=== PATIENT | male | born 1950 | race Caucasian/White ===

== ENCOUNTER 2019-12-26 14:24 | Inpatient (IN) | payer MEDICARE, OTHER ==
[~2019-12-26] VITALS: Ht 188 cm; Wt 115.7 kg
[2019-12-26] VITALS (8 sets, daily range): BP systolic 89–159; BP diastolic 44–72
--- NOTE | 2019-12-26 14:49 | NUR ---
TRANSFER CARE OVER TO DEREK ANDREW REPORT GIVEN.
--- NOTE | 2019-12-26 14:55 | NUR ---
RHYTHM/RATE CHANGE. DR CASTREJON AT BS. PT ALERT AND ORIENTED. HR 61. RADIAL PULSE PALPABLE. BP IMPROVED
[2019-12-26 15:18] LABS: BASOPHILS 0.4 % (0-2); EOSINOPHILS 0 % (0-7); HEMATOCRIT 34.8 % (42.0-54.0); HEMOGLOBIN 10.8 g/dL (13.5-17.5); LYMPHOCYTES 6.3 % (15-50); MCV 103.3 fL (80.0-100.0); MEAN PLATELET VOLUME 10.4 fL (7.4-10.4); MONOCYTES 6.7 % (2-11); NEUTROPHILS 78.6 % (40-80); PLATELET COUNT 105 10x3/uL (130-400); RBC 3.37 10x6/uL (4.20-6.10); RDW 17.3 % (11.5-14.5); WBC 5.4 10x3/uL (4.8-10.8)
[2019-12-26 15:30] LABS: APTT 30.9 SECONDS (22.8-39.4); INR 1.28 (0.85-1.17); PROTIME 15.9 SECONDS (11.6-15.0)
[2019-12-26 15:35] LABS: CALC OSMOLALITY 293 mosm/kg (275-300); CARBON DIOXIDE 25.9 mmol/L (21.0-32.0); CHLORIDE - SERUM 106 mmol/L (98-107); CREATININE - SERUM 1.2 mg/dL (0.6-1.3); GLUCOSE 92 mg/dL (74-106); POTASSIUM - SERUM 4.8 mmol/L (3.5-5.1); SODIUM 145 mmol/L (136-145); UREA NITROGEN 26 mg/dL (7-18); eGFR NON AFRICAN AMERICAN 63 mL/min (90-120)
[2019-12-26 15:55] LABS: ALBUMIN 2.5 g/dL (3.4-5.0); ALKALINE PHOSPHATASE 81 U/L (30-120); ALT (SGPT) 790 U/L (10-68); CKMB 5.2 U/L (0.0-3.6); CREATINE KINASE 297 UL (21-232); MAGNESIUM - SERUM 2.1 mg/dL (1.8-2.4); PRO BNP 8621 pg/mL (0-125); PROTEIN - SERUM 5.6 g/dL (6.4-8.2)
[2019-12-26 15:57] LABS: TROPONIN-I 0.134 ng/mL (0.000-0.060)
[2019-12-26 16:00] LABS: D-DIMER-QUANTITATIVE 2.96 ug/mLFEU (0.20-0.54)
[2019-12-26] MEDS ORDERED: ELIQUIS5 MG PO (16:21)
[2019-12-26] MEDS ORDERED: KAZANO 12.5-501 EACH PO ×2 (16:21)
[2019-12-26] MEDS ORDERED: GABAPENTIN300 MG PO (16:22)
[2019-12-26] MEDS ORDERED: FUROSEMIDE20 MG PO (16:22)
[2019-12-26] MEDS ORDERED: CARDIZEM 90 MG90 MG PO (16:22)
[2019-12-26] MEDS ORDERED: LIPITOR80 MG PO (16:22)
[2019-12-26] MEDS ORDERED: LANTUS INS100 UNITS/ SC (16:23)
[2019-12-26] MEDS ORDERED: HUMULIN R100 UNIT/1 SC (16:23)
[2019-12-26] MEDS ORDERED: HYDROXYCHLOROQ200 MG PO (16:23)
[2019-12-26] MEDS ORDERED: GLUCOPHAGE500 MG PO (16:24)
[2019-12-26] MEDS ORDERED: PAMELOR10 MG PO (16:24)
[2019-12-26] MEDS ORDERED: PROTONIX40 MG PO (16:24)
[2019-12-26] MEDS ORDERED: K-DUR20 MEQ PO (16:24)
[2019-12-26] MEDS ORDERED: TRAZODONE HCL150 MG PO (16:25)
[2019-12-26] MEDS ORDERED: BETAPACE 80 MG80 MG PO (16:25)
[2019-12-26] MEDS ORDERED: PREDNISONE5 MG PO (16:25)
[2019-12-26] MEDS ORDERED: OS-CAL500 MG PO (16:26)
[2019-12-26] MEDS ORDERED: ACETAMINOPHEN325 MG PO (16:26)
[2019-12-26] MEDS ORDERED: ZOFRAN ODT4 MG/UDTAB PO (16:27)
[2019-12-26] MEDS ORDERED: METHOCARBAMOL500 MG PO (16:27)
[2019-12-26] MEDS ORDERED: HEALTHYLAX17 GM PO (16:27)
[2019-12-26] MEDS ORDERED: RESTORIL15 MG PO (16:27)
[2019-12-26] MEDS ORDERED: ULTRAM50 MG PO (16:28)
--- NOTE | 2019-12-26 17:45 | NUR ---
VIET MCLEAN AT
[2019-12-26 21:42] LABS: CREATINE KINASE 307 UL (21-232)
[2019-12-26 21:43] LABS: TROPONIN-I 0.119 ng/mL (0.000-0.060)
[2019-12-27 02:34] VITALS: BP 176/87; BMI 32.8
[2019-12-27 04:00] VITALS: BP 181/92
[2019-12-27 05:57] LABS: HEMATOCRIT 32.7 % (42.0-54.0); HEMOGLOBIN 10.5 g/dL (13.5-17.5); MCH 32.8 pg (26.0-34.0); MCHC 32.1 g/dL (31.0-37.0); MCV 102.2 fL (80.0-100.0); MEAN PLATELET VOLUME 12.6 fL (7.4-10.4); PLATELET COUNT 101 10x3/uL (130-400); RDW 17.9 % (11.5-14.5); WBC 5.1 10x3/uL (4.8-10.8)
[2019-12-27 06:43] LABS: ALBUMIN 2.4 g/dL (3.4-5.0); ALKALINE PHOSPHATASE 79 U/L (30-120); ALT (SGPT) 666 U/L (10-68); AMYLASE - SERUM 63 U/L (25-115); BILIRUBIN - TOTAL 1.29 mg/dL (0.2-1.3); CALCIUM 7.9 mg/dL (8.5-10.1); CARBON DIOXIDE 27.2 mmol/L (21.0-32.0); CHLORIDE - SERUM 106 mmol/L (98-107); CREATINE KINASE 183 UL (21-232); LIPASE 80 U/L (73-393); MAGNESIUM - SERUM 2.2 mg/dL (1.8-2.4); PHOSPHOROUS 4.3 mg/dL (2.5-4.9); POTASSIUM - SERUM 4.2 mmol/L (3.5-5.1); PRO BNP 3378 pg/mL (0-125); PROTEIN - SERUM 4.8 g/dL (6.4-8.2); SODIUM 142 mmol/L (136-145); UREA NITROGEN 23 mg/dL (7-18); eGFR NON AFRICAN AMERICAN 78 mL/min (90-120)
[2019-12-27 07:14] LABS: CALC OSMOLALITY 283 mosm/kg (275-300); TROPONIN-I 0.145 ng/mL (0.000-0.060)
[2019-12-27 07:18] LABS: GLUCOSE 53 mg/dL (74-106)
--- NOTE | 2019-12-27 07:25 | NUR ---
PT RESTING IN BED, AROUSES TO VOICE, ORIENTED TO PERSON ONLY AT THIS TIME. D50 BEING ADMINISTERED AT THIS TIME BY TOURIST ADVISER NURSE. RESP SHALLOW, UPON LISTENING TO BOWEL SOUNDS, PT DOES MAKE MOANING SOUNDS @ THIS TIME, GRIMACING. REDNESS NOTED TO RIGHT SCLERA AT THIS TIME. IV TO RIGHT AC WITH NS @ 100ML/HR INFUSING VIA PUMP. SITE WITHOUT REDNESS OR EDEMA. MULTIPLE SCABS AND SORES NOTED TO RIGHT AND LEFT ARM, RIGHT AND LEFT LEG AND BRUISING. DRESSINGS INTACT TO AREAS. COCCYX REDDENED, SCAB AND SORE TO BUTTOCKS. EDEMA NOTE TO BILAT LOWER EXTREMITIES. CL WITHIN REACH. CONTINUE POC
[2019-12-27 07:44] LABS: ANISOCYTOSIS OCC; EOSINOPHILS 1 % (0-7); LYMPHOCYTES 17 % (15-50); MONOCYTES 2 % (2-11); NEUTROPHILS 79 % (40-80)
[2019-12-27 08:19] LABS: PLATELET ESTIMATE NORMAL
--- NOTE | 2019-12-27 09:30 | NUR ---
PT AWAKE AND MORE ALERT. ORIENTED TO PERSON PLACE AND TIME AT THIS TIME. SPOUSE AT BEDSIDE AND ABLE TO IDENTIFY SPOUSE. PT REPORTS PAIN TO LOWER BACK, BUT HAS NO ORDERS FOR PAIN MEDICATION AT THIS TIME. INFORMED PT AND FAMILY, WILL CONTACT PHYSICIAN REGARDING NEED FOR PAIN MEDICATION.
[2019-12-27 10:13] VITALS: BP 183/89
[2019-12-27 10:24] LABS: CKMB 3.6 U/L (0.0-3.6); CREATINE KINASE 148 UL (21-232)
[2019-12-27 10:28] LABS: TROPONIN-I 0.121 ng/mL (0.000-0.060)
[2019-12-27 10:40] VITALS: Ht 188 cm; Wt 115.7 kg
[2019-12-27 14:34] VITALS: BP 171/79
[2019-12-27 17:52] LABS: BILIRUBIN NEGATIVE (NEGATIVE); GLUCOSE NEGATIVE (NEGATIVE); KETONE SMALL mg/dL (NEGATIVE); NITRITE NEGATIVE (NEGATIVE); UROBILINOGEN NORMAL (NORMAL)
[2019-12-27 17:53] LABS: BACTERIA FEW /hpf (NEGATIVE); EPITHELIAL CELLS NSEEN /hpf (0-5); RED CELLS - URINE 0-5 /hpf (0-5); WHITE CELLS - URINE 0-5 /hpf (NEGATIVE)
[2019-12-27 18:44] VITALS: BP 182/84
[2019-12-27 20:00] VITALS: BP 143/72
--- NOTE | 2019-12-27 20:00 | NUR ---
PATIENT RESTING IN BED WATCHING TV. NO S/S OF ACUTE DISTRESS. NO C/O AT THIS TIME. PATIENT HAS IV TO RIGHT AC, NORMAL SALINE @ 100 ML/HR. IV IS PATENT WIHOUT REDNESS, SWELLING, OR TENDERNESS. PATIENT IS VERY GROGGY AND SLEEPY. PATIENT HAS EDEMA TO BILAT ARMS AND LEGS. PATIENT'S ARMS ARE WEEPING WITH MUTLIPLE OPEN SORES ON THEM. PATIENT USES URINAL AND BEDPAN. CALL LIGHT WITHIN REACH. BED ALARM ON. WILL CONTINUE TO MONITOR.
[2019-12-28 04:00] VITALS: BP 173/78
--- NOTE | 2019-12-28 05:14 | NUR ---
I have reviewed this patient and I concur with the Shift Assessment completed by the Licensed Practical Nurse today this shift.
--- NOTE | 2019-12-28 08:00 | NUR ---
PT RESTING IN BED QUIETLY. RESP EVEN AND UNLABORED. RIGHT IJ INTACT WITH 1/2 NS @ 125ML/HR INFUSING VIA PUMP. SITE WITHOUT REDNESS OR EDEMA. 3 LAP SITES NOTED TO ABDOMEN. G-TUBE TO LEFT QUAD IN PLACE, NO DRAINAGE NO REDNESS NOTED. PT VOICED QUESTIONS ABOUT FEEDING. EDUCATED PT REGARDING FEEDINGS AND USE OF GTUBE. PT VOICED UNDERSTANDING. F/C PATENT TO GRAVITY. DENIES FURTHER NEEDS AT THIS TIME. CL WITHIN REACH. ENCOURAGED TO CALL WITH NEEDS. CONTINUE POC
[2019-12-28 08:13] LABS: HEPATITIS C ANTIBODY <0.1 S/CO RAT (0.0-0.9)
[2019-12-28 09:00] LABS: BASOPHILS 0.4 % (0-2); EOSINOPHILS 0 % (0-7); HEMATOCRIT 33.2 % (42.0-54.0); HEMOGLOBIN 10.5 g/dL (13.5-17.5); IMMATURE GRANULOCYTES 6.5 % (0-5); LYMPHOCYTES 6.6 % (15-50); MCH 32.1 pg (26.0-34.0); MCHC 31.6 g/dL (31.0-37.0); MCV 101.5 fL (80.0-100.0); MEAN PLATELET VOLUME 9.8 fL (7.4-10.4); MONOCYTES 5.5 % (2-11); PLATELET COUNT 119 10x3/uL (130-400); RBC 3.27 10x6/uL (4.20-6.10); RDW 16.8 % (11.5-14.5); WBC 5.3 10x3/uL (4.8-10.8)
[2019-12-28 09:23] LABS: CALCIUM 7.6 mg/dL (8.5-10.1); CHLORIDE - SERUM 107 mmol/L (98-107); CREATININE - SERUM 0.8 mg/dL (0.6-1.3); PHOSPHOROUS 3.8 mg/dL (2.5-4.9); POTASSIUM - SERUM 4.2 mmol/L (3.5-5.1); SODIUM 143 mmol/L (136-145); UREA NITROGEN 19 mg/dL (7-18); eGFR NON AFRICAN AMERICAN > 90 mL/min (90-120)
[2019-12-28 09:27] LABS: CALC OSMOLALITY 287 mosm/kg (275-300); GLUCOSE 122 mg/dL (74-106)
[2019-12-28 10:59] VITALS: BP 132/94
[2019-12-28 13:02] VITALS: BP 161/88
[2019-12-28 17:08] VITALS: BP 171/83
[2019-12-28 20:00] VITALS: BP 135/76
--- NOTE | 2019-12-28 20:00 | NUR ---
PATIENT IS CONFUSED. ORIENTATED TO SELF ONLY. NO S/S OF ACUTE DISTRESS. NO C/O AT THIS TIME. CALL LIGHT WITHIN REACH. BED ALARM ON. WILL CONTINUE TO MONITOR.
--- NOTE | 2019-12-29 05:00 | NUR ---
I have reviewed this patient and I concur with the Shift Assessment completed by the Licensed Practical Nurse today this shift.
[2019-12-29 07:28] LABS: CALC OSMOLALITY 281 mosm/kg (275-300); CALCIUM 8.4 mg/dL (8.5-10.1); CARBON DIOXIDE 23.4 mmol/L (21.0-32.0); CHLORIDE - SERUM 107 mmol/L (98-107); GLUCOSE 128 mg/dL (74-106); MAGNESIUM - SERUM 2.1 mg/dL (1.8-2.4); POTASSIUM - SERUM 3.8 mmol/L (3.5-5.1); SODIUM 139 mmol/L (136-145); UREA NITROGEN 19 mg/dL (7-18); eGFR NON AFRICAN AMERICAN 78 mL/min (90-120)
[2019-12-29 07:29] LABS: BASOPHILS 0.2 % (0-2); EOSINOPHILS 0.3 % (0-7); HEMATOCRIT 34.2 % (42.0-54.0); HEMOGLOBIN 10.9 g/dL (13.5-17.5); IMMATURE GRANULOCYTES 5.7 % (0-5); LYMPHOCYTES 11.8 % (15-50); MCH 32.5 pg (26.0-34.0); MCHC 31.9 g/dL (31.0-37.0); MCV 102.1 fL (80.0-100.0); MEAN PLATELET VOLUME 9.8 fL (7.4-10.4); MONOCYTES 6.9 % (2-11); NEUTROPHILS 75.1 % (40-80); PLATELET COUNT 135 10x3/uL (130-400); RBC 3.35 10x6/uL (4.20-6.10); RDW 16.8 % (11.5-14.5); WBC 5.9 10x3/uL (4.8-10.8)
[2019-12-29 07:47] LABS: PHOSPHOROUS 2.6 mg/dL (2.5-4.9)
--- NOTE | 2019-12-29 08:23 | NUR ---
PT RESTING IN BED, NO DISTRESS NOTED, MONITOR SUGARS, IN ROOM, TELE IN PLACE, LEGS AND ARMS WRAPPED FOR WEEPING, CONT TO MONITOR
[2019-12-29 09:57] VITALS: BP 102/62
--- NOTE | 2019-12-29 14:04 | NUR ---
refused xray at this time, states that the pain is to bad, medicated with ultram
[2019-12-29 14:09] VITALS: BP 109/82
[2019-12-29 17:04] VITALS: BP 126/70
[2019-12-29 21:00] VITALS: BP 137/84
--- NOTE | 2019-12-30 03:15 | NUR ---
DRESSINGS CHANGED TO BOUTH ARMS
--- NOTE | 2019-12-30 03:43 | NUR ---
PATIENT YELLING FOR STAFF THE YELLS THAT I WILL PUT MY SELF IN THE FLOOR. WENT INTO ROOM ATEMPTED TO APEAS HIM CHANGED DRESSINGS ON ARMS. WENT TO GET CLEAN SHEET AND BLANKET HE STARTED YELLING AGAIN EDUCATED KALI THAT I WENT TO GET THEM. WELL I WANT TO BE FIXED IN BED PUT THE PILLOW BEHIND MY BACK. OK LETS RAISE UP SO I CAN PUT IT BEHIND YOUR BACK. HE STATED NO PULL ME UP EXTENDED MY ARM TO ASSIST HE REFUSED TO HELP AND STATED YOU HAVE TO LIFT MY LEGS UP AND PUT THEM ON THE FLOOR AND STAND ME UP TO GET ME IN THE MIDLE OF THE BED, EDUCATED HIM THAT HE DID NOT HAVE TO STAND UP FOR US TO DO THAT AND I COULD NOT DO THAT BY MY SELF. HE STATED WELL GET THE HELL OUT OF HERE, CALL TO DRAMA TEACHER SHE CAME AND TALKED WITH PT AND ASSISTED WITH ADRESSING HIS NEEDS.
[2019-12-30 07:33] LABS: CARBON DIOXIDE 28.7 mmol/L (21.0-32.0); CHLORIDE - SERUM 111 mmol/L (98-107); CREATININE - SERUM 0.8 mg/dL (0.6-1.3); GLUCOSE 95 mg/dL (74-106); MAGNESIUM - SERUM 1.9 mg/dL (1.8-2.4); PHOSPHOROUS 2.3 mg/dL (2.5-4.9); SODIUM 145 mmol/L (136-145); eGFR NON AFRICAN AMERICAN > 90 mL/min (90-120)
[2019-12-30 07:36] LABS: CALC OSMOLALITY 287 mosm/kg (275-300); POTASSIUM - SERUM 3.1 mmol/L (3.5-5.1); UREA NITROGEN 11 mg/dL (7-18)
[2019-12-30 07:40] LABS: HEMATOCRIT 31.1 % (42.0-54.0); MCH 32.5 pg (26.0-34.0); MCHC 32.2 g/dL (31.0-37.0); MEAN PLATELET VOLUME 9.7 fL (7.4-10.4); PLATELET COUNT 118 10x3/uL (130-400); RBC 3.08 10x6/uL (4.20-6.10); RDW 16.7 % (11.5-14.5); WBC 5.6 10x3/uL (4.8-10.8)
[2019-12-30 07:58] LABS: ANISOCYTOSIS OCC; BURR CELLS OCC; LYMPHOCYTES 17 % (15-50); MONOCYTES 1 % (2-11); NEUTROPHILS 81 % (40-80); PLATELET ESTIMATE NORMAL; TEAR DROP CELLS 1+
[2019-12-30 09:01] VITALS: BP 154/76
--- NOTE | 2019-12-30 11:04 | NUR ---
RESTING IN BED, NO DISTRESS NOTED, CONT TO MONITOR SUGARS, DRESSINGS TO ARMS AND LEGS FOR WEEPING SKIN
[2019-12-30 12:25] VITALS: BP 166/72
--- NOTE | 2019-12-30 14:00 | NUR ---
ATTEMPTED TO PUT PT ON BSC TODAY, PT KNEE BUCKLED AND PT WAS RETURNED TO BE, PT STATES THAT HE HASNT WALKED IN 1 MONTH,
[2019-12-30 16:00] VITALS: BP 123/102
[2019-12-30 20:05] VITALS: BP 151/83
--- NOTE | 2019-12-30 22:03 | NUR ---
PATIENT WAS RUNNING 130-140 UNCONTROLED A-FIB . DURING THIS TIME HE TOOK OFF HIS TELEMETRY OFF 5 TIMES AND WAS MOVING LEADS AROUND ON HIS BODY. AT THIS TIME HE IS RUNNING 74 SINUS RHYTHM.
--- NOTE | 2019-12-30 22:35 | NUR ---
PT. ALLIING WENT TO ROOM TO CHECK ON HIM HE HAD HIS LEGS OFF THE BED AND STATED YOU HAVE TO STAND ME UP.EDUCATED PT. THAT WE COULD NOT STAND HIM UP HIS LEGS BUCKLED WITH PT AND THE NURSE TODAY, ABD WE WERE UNABLE TO DO SO LAST NIGHT WHE WE ATEMPTED PER HIS REQUEST. THAT FOR HIM TO GET UP HE WOULD NEED P.T. HE THE YELLED WELL PUT BE BACK IN BED AND FIX ME UP IN THE BED. EDUCATED HIM THAT WE WOULD HAVE TO PUT THE HEAD OF THE BED DOWN TO MOVE HIM UP. HE DID NOT WHANT THIS EDUCATED THAT WE COULD NOT LIFT HIM WITHOUT PUTTING THE HEAD OF THE BED DOWN. MANNY WASSERMAN BUT YELLED AT STAFF WHEN WE DID . SAYING YOU JUST LIKE TO HURT ME. EDUCATED HIM THAT WAS NOT THE CASE. THAT WE COULD NOT LIFT HIM UP WITH THE HEAD OF THE BED UP. HE THEN STATED HE HAD IT APROVED BY THE DOCTER FOR US TO STAND HIM UP AND WALK HIM. (PT IS UNABLE TO STAND AND HOLD HIS OWN WT.) AND HE WAS GOING TO TELL HIM.
[2019-12-31 04:00] VITALS: BP 130/90
--- NOTE | 2019-12-31 06:50 | NUR ---
PATIENT YELLING OUT AND AT STAFF. PULLED OFF TELEMETRY MULTABLE TIMES. PULLED IV LINE APART AND THROUGH PART OUT THE DOOR. PULED IV FROM ARM. HITTING STAFF WHEN ATEMPTED TO HELP HIM. HE WAS PUTTING HIS LEGS OFF THE BED SAYING HE WAS GOING TO PUT HIS SELF IN THE FLOOR. CALL TO ARCHITECTURE FACULTY MEMBER NEW ORDER FOR GEADON 10MG IM Q6 HR PRN. GAVE FRIST DOSE . DID LET HIM REST FOR A SHORT TIME THEN HE STARTED AGAIN. CALLED SALES LEDGER CLERK AND INFORMED, CALLED AND SHE RETRUNED AND SAT WITH PT. UNABLE TO GET IV PUT IN REQUEST FOR VASQULAR NURSE TO TRY.
--- NOTE | 2019-12-31 07:58 | NUR ---
PATIENT SLEEPING. AT BEDSIDE. LUNGS CLEAR BILATERALLY. HEART SOUNDS S1 AND S2 HEARD IN ALL RAI. BOWEL SOUNDS ACTIVE X 4. NO IV. WAITING VASCULAR ACCESS. BED LOW. CALL ELY AND PERSONAL ITEMS IN REACH. WILL CONTINUE TO MONITOR.
[2019-12-31 08:39] VITALS: BP 124/77
--- NOTE | 2019-12-31 09:24 | NUR ---
IV TO RFA PREVIOUSLY SITED BY GIA VASCULAR ACCESS NURSE OCCLUDED AND LEAKING.
--- NOTE | 2019-12-31 10:15 | NUR ---
ATTEMPTED TO CALL NAHOMY ABOUT IV ACCESS AGAIN WITH NO ANSWER.
--- NOTE | 2019-12-31 10:33 | NUR ---
BED ALARM REFUSAL SIGNED BY AT BEDSIDE AND ON CHART.
--- NOTE | 2019-12-31 11:32 | NUR ---
ATTEMPTED AGAIN TO CALL VASCULAR ACCESS NURSE WITH NO ANSWER. CALLED ER WHO STATES [facility] NURSE NOT IN ER. STILL WAITING LINE TO GIVE MEDS.
[2019-12-31 12:29] VITALS: BP 129/66
--- NOTE | 2019-12-31 13:18 | NUR ---
Nutrition follow-up: Visited with pt and ; pt remains on clear liquids since surgery (5 days) Recommended to Edna Stinson if ProcalAmine PPN could start. RDN ordered ProcalAmine @ 75 ml/hr; IVF decreased to 50 ml/hr Labs reviewed WT: 254# RDN will monitor patients diet advancement and tolerance.
--- NOTE | 2019-12-31 13:32 | NUR ---
MONITORS CALLED AND INFORMED ME THAT THE PATIENT IS NOW RUNNING 56 SINUS KAITY AND HE WAS RUNNING 114 UNCONTROLLED AFIB THIS MORNING. I GOT REPORT THAT PT WAS 64 SINUS RHYTHM.
--- NOTE | 2019-12-31 14:18 | NUR ---
STARTED IV FLUIDS, ABX AND PROCAL. DC IV FROM RIGHT AC DUE TO INFILTRATION, CATHETER TIP INTACT, COVERED WITH GAUZE AND TAPE. TOLERATED WELL. WILL CHANGE DRESSING TO THE MIDLINE IN RIGHT UPPER ARM. RESTING COMFORTABLY. DENIES ANY NEEDS. BED IN LOWEST POSITION, BED RAILS X2, CALL LIGHT WITHIN REACH. WILL CONTINUE TO MONITOR. FAMILY AT BEDSIDE.
--- NOTE | 2019-12-31 16:35 | NUR ---
ADMINISTERED MEDICATION, 4 UNITS INSULIN PER SLIDING SCALE FOR SUGAR OF 228. CHANGED RIGHT UPPER ARM MIDLINE DRESSING, TOLERATED WELL. NEW GOWN. RESTING COMFORTABLY. DENIES ANY NEEDS. BED IN LOWEST POSITION, BED RAILS X2, CALL LIGHT WITHIN REACH. WILL CONTINUE TO MONITOR.
[2019-12-31 17:15] VITALS: BP 123/63
[2019-12-31 20:00] VITALS: BP 147/66
--- NOTE | 2019-12-31 22:40 | NUR ---
PT PULLED OUT MIDLINE, PRESSURE DRESSING APPLIED. PT MAKING SUICIDAL COMMENTS, PARKING METER COLLECTOR NOTIFIED. MONITOR CLOSELY.
--- NOTE | 2019-12-31 23:00 | NUR ---
SPOKE WITH PTs ON PHONE. INFORMED OF PT REMOVING MIDLINE AND SUICIDAL COMMENTS/AGGRESSION/NON-COMPLIANCE and PENDING PSYCH CONSULT. REPORTED GROWING CONCERN REGARDING HIS CONFUSION AND AGITATION WHICH HAS BEEN STEADILY INCREASING. WILL NOTIFY WITH ANY FURTHER SIGNIFICANT CHANGES.
[2019-12-31 23:11] LABS: HEMATOCRIT 31.3 % (42.0-54.0); HEMOGLOBIN 10.2 g/dL (13.5-17.5)
--- NOTE | 2019-12-31 23:43 | NUR ---
CALLED TO PT ROOM FOR SUICIDE ASSESSMENT. PT PULLED OUT HIS P.I.C.C. LINE AND STATED TO NURSING STAFF HIS INTENT OF DOING SO WAS TO HARM HIMSELF. ATTEMPTED SUICIDE ASSESSMENT BUT PATIENT REFUSED TO ANSWER ANY QUESTIONS. ONE ON ONE SITTER ORDERED RELATED TO ACTUAL ATTEMPT TO HARM HIMSELF.
--- NOTE | 2020-01-01 02:56 | NUR ---
I have reviewed this patient and I concur with the Shift Assessment completed by the Licensed Practical Nurse today this shift.
[2020-01-01 04:30] VITALS: BP 98/60
[2020-01-01 08:09] VITALS: BP 184/74
[2020-01-01 12:54] VITALS: BP 110/84
[2020-01-01 17:24] VITALS: BP 108/61
[2020-01-01 18:26] LABS: BASOPHILS 0.2 % (0-2); EOSINOPHILS 0.4 % (0-7); HEMATOCRIT 31.8 % (42.0-54.0); HEMOGLOBIN 10.4 g/dL (13.5-17.5); IMMATURE GRANULOCYTES 4.2 % (0-5); LYMPHOCYTES 13.2 % (15-50); MCHC 32.7 g/dL (31.0-37.0); MCV 97.8 fL (80.0-100.0); MEAN PLATELET VOLUME 9.9 fL (7.4-10.4); MONOCYTES 6.6 % (2-11); NEUTROPHILS 75.4 % (40-80); PLATELET COUNT 124 10x3/uL (130-400); RBC 3.25 10x6/uL (4.20-6.10); RDW 16.6 % (11.5-14.5)
[2020-01-01 18:42] LABS: ALBUMIN 2.2 g/dL (3.4-5.0); ALKALINE PHOSPHATASE 94 U/L (30-120); ALT (SGPT) 137 U/L (10-68); BILIRUBIN - TOTAL 1.34 mg/dL (0.2-1.3); CARBON DIOXIDE 29.8 mmol/L (21.0-32.0); CHLORIDE - SERUM 87 mmol/L (98-107); PROTEIN - SERUM 4.7 g/dL (6.4-8.2); UREA NITROGEN 8 mg/dL (7-18)
[2020-01-01 19:37] LABS: GLUCOSE 156 mg/dL (74-106)
[2020-01-01 19:38] LABS: CALC OSMOLALITY 289 mosm/kg (275-300); CALCIUM 7.4 mg/dL (8.5-10.1); CREATININE - SERUM 0.6 mg/dL (0.6-1.3); SODIUM 145 mmol/L (136-145); eGFR NON AFRICAN AMERICAN > 90 mL/min (90-120)
[2020-01-01 19:40] LABS: POTASSIUM - SERUM 2.9 mmol/L (3.5-5.1)
[2020-01-01 20:00] VITALS: BP 149/74
[2020-01-02 08:50] VITALS: BP 131/72
--- NOTE | 2020-01-02 10:26 | NUR ---
PATIENT RECEIVED FROM [employer]. PATIENT HAS FACIAL GRIMACING TO PAINFUL STIMULI. LUNGS CTA DIMINISHED IN BASES BILAT RESP UNLABORED AND EVEN. HEART TONES RRR AUSC CM IS SB IN 50'S. ABDOMEN SOFT AND ROUNDED BS X4 QUADS. SKIN WARM/DRY GENERALIZED BRUISING AND SKIN TEARS NOTED. IV INTACT IN L UPPER ARM SALINE LOCKED 20G CATH NOTED WITHOUT REDNESS OR EDEMA NOTED.
[2020-01-02 13:31] VITALS: BP 149/67
--- NOTE | 2020-01-02 14:35 | CN ---
PATIENT NAME:HELENA MENDEZ MEDICAL RECORD: [id number] : 46 LOCATION:[facility] ADMIT DATE: 12/26/19 ACCOUNT: [id number] CONSULTING PHYSICIAN: GEREMIAS SHULTZ MD REFERRING PHYSICIAN: MAGGI CONTRERAS DO DATE OF CONSULTATION: 01/01/2020 IDENTIFYING DATA: The patient is 69 years old and is admitted to the hospital secondary to multiple medical problems. He has a history of hypertension, atrial fibrillation, congestive heart failure, diabetes, neuropathy, polymyalgia rheumatica, and bilateral knee replacement. Apparently, he became quite agitated yesterday was yelling incoherent and combative. He also said that he wanted to kill himself. He received some p.r.n. medication and currently he is sedated. He is interviewable but the reliability is questionable. ASSESSMENT: Delirium secondary to multiple medical factors. PLAN: At this point, the patient will be maintained on p.r.n. medications. I am going to order a scheduled dose of an antipsychotic. He should stay 1:1 with the sitter and I will reassess for dangerousness tomorrow when he is hopefully more awake and alert. TRANSINT:[id number] Voice Confirmation ID: [id number] DOCUMENT ID: [id number] GEREMIAS SHULTZ MD at 1435 CC: [id number] DICTATION DATE: 01/01/20 1731 BOARDMARKER: 01/02/20 0110 ADM IN [facility] [id number] [place] [address]
[2020-01-02 16:37] VITALS: BP 166/72
[2020-01-02 17:46] LABS: BASOPHILS 0.2 % (0-2); EOSINOPHILS 0 % (0-7); HEMATOCRIT 34.9 % (42.0-54.0); IMMATURE GRANULOCYTES 4.4 % (0-5); MCH 32.1 pg (26.0-34.0); MCHC 31.5 g/dL (31.0-37.0); MEAN PLATELET VOLUME 9.7 fL (7.4-10.4); MONOCYTES 7.1 % (2-11); NEUTROPHILS 78.3 % (40-80); PLATELET COUNT 117 10x3/uL (130-400); RBC 3.43 10x6/uL (4.20-6.10); RDW 16.9 % (11.5-14.5); WBC 4.5 10x3/uL (4.8-10.8)
[2020-01-02 17:53] LABS: MCV 101.7 fL (80.0-100.0)
[2020-01-02 18:13] LABS: ALBUMIN 2.2 g/dL (3.4-5.0); ALKALINE PHOSPHATASE 91 U/L (30-120); ALT (SGPT) 114 U/L (10-68); BILIRUBIN - TOTAL 1.41 mg/dL (0.2-1.3); CALCIUM 7.6 mg/dL (8.5-10.1); CARBON DIOXIDE 33.8 mmol/L (21.0-32.0); CHLORIDE - SERUM 108 mmol/L (98-107); CREATININE - SERUM 0.7 mg/dL (0.6-1.3); GLUCOSE 178 mg/dL (74-106); PROTEIN - SERUM 4.7 g/dL (6.4-8.2); SODIUM 145 mmol/L (136-145); eGFR NON AFRICAN AMERICAN > 90 mL/min (90-120)
[2020-01-02 18:15] LABS: CALC OSMOLALITY 291 mosm/kg (275-300); POTASSIUM - SERUM 3.4 mmol/L (3.5-5.1); UREA NITROGEN 11 mg/dL (7-18)
[2020-01-02 20:00] VITALS: BP 171/79
[2020-01-03 04:00] VITALS: BP 159/57
[2020-01-03 04:51] LABS: BASOPHILS 0 % (0-2); EOSINOPHILS 0.3 % (0-7); HEMATOCRIT 31.7 % (42.0-54.0); HEMOGLOBIN 9.8 g/dL (13.5-17.5); IMMATURE GRANULOCYTES 4.3 % (0-5); LYMPHOCYTES 12.8 % (15-50); MCH 31.2 pg (26.0-34.0); MCHC 30.9 g/dL (31.0-37.0); MEAN PLATELET VOLUME 9.9 fL (7.4-10.4); MONOCYTES 7.3 % (2-11); NEUTROPHILS 75.3 % (40-80); PLATELET COUNT 135 10x3/uL (130-400); RBC 3.14 10x6/uL (4.20-6.10); RDW 16.9 % (11.5-14.5); WBC 3.7 10x3/uL (4.8-10.8)
[2020-01-03 05:35] LABS: ALBUMIN 1.9 g/dL (3.4-5.0); ALKALINE PHOSPHATASE 82 U/L (30-120); ALT (SGPT) 90 U/L (10-68); BILIRUBIN - TOTAL 1.11 mg/dL (0.2-1.3); CALCIUM 7.4 mg/dL (8.5-10.1); CARBON DIOXIDE 30.5 mmol/L (21.0-32.0); CHLORIDE - SERUM 108 mmol/L (98-107); CREATININE - SERUM 0.7 mg/dL (0.6-1.3); PROTEIN - SERUM 4.8 g/dL (6.4-8.2); SODIUM 143 mmol/L (136-145); UREA NITROGEN 11 mg/dL (7-18); eGFR NON AFRICAN AMERICAN > 90 mL/min (90-120)
[2020-01-03 05:42] LABS: CALC OSMOLALITY 284 mosm/kg (275-300); GLUCOSE 120 mg/dL (74-106)
[2020-01-03 05:43] LABS: POTASSIUM - SERUM 2.7 mmol/L (3.5-5.1)
--- NOTE | 2020-01-03 06:55 | NUR ---
I have reviewed this patient and I concur with the Shift Assessment completed by the Licensed Practical Nurse today this shift.
[2020-01-03 08:00] VITALS: BP 140/80
[2020-01-03 12:00] VITALS: BP 134/62
--- NOTE | 2020-01-03 12:16 | PN ---
PATIENT:HELENA MENDEZ MEDICAL RECORD: [id number] LOCATION:[facility] ADMISSION DATE: 12/26/19 PROGRESS NOTE DATE OF SERVICE: 01/02/2020 SUBJECTIVE: The patient's case was discussed with staff. He has no new complaint. OBJECTIVE: The patient is having significant agitation. He was p.r.n. earlier today and now is sleeping. He is arousable, but really does not give me much in the way of useful information. ASSESSMENT: Delirium, probably secondary to multiple underlying toxic and metabolic causes. I would recommend continued supportive therapies and suspect that he is probably demented underlying all of this, but at this point, it is very difficult to say. The p.r.n. and scheduled medications for his behavior are all I have to offer right now. I will continue to follow him on an as needed basis. TRANSINT:[id number] Voice Confirmation ID: [id number] DOCUMENT ID: [id number] GEREMIAS SHULTZ MD at 1216 CC: [id number] DICTATION DATE: 01/02/201708 GASTROENTEROLOGY TEACHER: 01/03/20 0123 ADM IN [facility] [address] [place] [address]
--- NOTE | 2020-01-03 14:07 | MORECARE ---
CASE MANAGEMENT DISCHARGE SUMMARY PATIENT: HELENA MENDEZ UNIT: [id number] ADM DATE: 12/26/19 AGE: 69 : 48 SEX: M ROOM/BED: D.2230 AUTHOR: CATHY LINN PHYSICIAN: REFERRING PHYSICIAN: MAGGI CONTRERAS DO DATE OF SERVICE: 01/03/20 Discharge Plan Patient Name: HELENA MENDEZ Facility: [facility]:[place] : 1950 Planned Disposition: Home Hlth Svc w Plan Readm Anticipated Discharge Date: Discharge Date: Expected LOS: Initial Reviewer: [email or web address] Initial Review Date: 01/03/2020 Generated: 01/03/20 3:06 pm Comments DCP- Discharge Planning Updated by [email or web address]: Nica Kaiser on 01/03/20 1:[address] Patient Name: HELENA MENDEZ Admission Status: Elective Accout number: [id number] Admission Date: 12-26-2019 : 1950 Admission Diagnosis:UNSPECIFIED ATRIAL FLUTTER Attending: MAGGI CONTRERAS Current LOS: 8 Anticipated DC Date: Planned Disposition: Home Hlth Svc w Plan Readm Primary Insurance: MEDICARE A & B Discharge Planning Comments: CM SPOKE WITH OVER THE PHONE. PLAN IS FOR TO RETURN HOME AND RESUME [facility]. CM TO FOLLOW AND ASSIST NEEDED. Marketing Services Rep: Nica Kaiser DCPIA - Discharge Planning Initial Assessment Updated by [id number]: Nica Kaiser on 01/03/20 1:58 pm * PCP MARTINI * Pharmacy [facility] * Preadmission Environment Home with Family * Other Equipment CANE, WC,WALKER, CRUTCHES * Community resources currently utilized Home Health * Please name any agencies selected above. [facility] * Additional services required to return to the preadmission environment? No * Can the patient safely return to the preadmission environment? Yes * Has this patient been hospitalized within the prior 30 days at any hospital? No Patient Name: HELENA MENDEZ Page [phone] at 1407 All edits/amendments must be made on the electronic document DICTATION DATE: 08/20/20 1407 ROLL SETTER: MARI 01/03/201406 RPT#: [id number] DC DATE: STATUS: ADM IN [facility] [address] [place] [address] END OF REPORT
[2020-01-03 15:26] VITALS: BP 118/69
--- NOTE | 2020-01-03 15:49 | NUR ---
Has been frequently c/o needing to urinate but has only had about 400cc urine OP today. Reveived order to bladder scan and do in/out cath. Bladder scan showed 805cc remaining in bladder after attempting to void. In/out cath produced 700cc. Pt stated he felt much better after in/out cath was done. Findings were reported to Dr. Mullen/ Clif. Continuing to monitor. Needs anticipated and met
[2020-01-03 20:00] VITALS: BP 146/66
[2020-01-04] VITALS: BP 150/78
[2020-01-04 04:00] VITALS: BP 140/76
--- NOTE | 2020-01-04 04:17 | NUR ---
ASSESSED AT THE BEGINNING OF THE SHIFT. PT LETHARGIC AND KEEPS EYES CLOSED MOST OF THE TIME. HE DOSES ANSWER QUESTIONS BUT HAS SOME CONFUSION. HE TOOK MEDS WITHOUT CRUSHING AND THIS NURSED WATCHED FOR COMPLICATIONS. A BATH WAS GIVEN AFTER MEDS AND NEW DRESSING WAS APPLIED TO HIS LEFT ARM WHICH IS WEEPING.
--- NOTE | 2020-01-04 06:57 | NUR ---
IV INFILTRATED AND WAS DC'D. ATTEMPTED X2 TO RESTART BUT THERE IS SO MUCH EDEMA WITH WEEPING FLUID THAT IT WAS UNSUCCESSFUL. WILL SEE WHAT MD WANTS STO DO.
[2020-01-04 07:38] LABS: BASOPHILS 0.2 % (0-2); EOSINOPHILS 0.2 % (0-7); HEMATOCRIT 33.3 % (42.0-54.0); HEMOGLOBIN 10.8 g/dL (13.5-17.5); IMMATURE GRANULOCYTES 3.6 % (0-5); LYMPHOCYTES 12.2 % (15-50); MCH 31.9 pg (26.0-34.0); MCHC 32.4 g/dL (31.0-37.0); MEAN PLATELET VOLUME 9.9 fL (7.4-10.4); NEUTROPHILS 75.8 % (40-80); PLATELET COUNT 122 10x3/uL (130-400); RBC 3.39 10x6/uL (4.20-6.10); RDW 16.2 % (11.5-14.5)
[2020-01-04 07:39] LABS: MCV 98.2 fL (80.0-100.0); WBC 4.8 10x3/uL (4.8-10.8)
[2020-01-04 07:51] LABS: ALBUMIN 2.1 g/dL (3.4-5.0); ALKALINE PHOSPHATASE 94 U/L (30-120); ALT (SGPT) 78 U/L (10-68); BILIRUBIN - TOTAL 1.11 mg/dL (0.2-1.3); CALC OSMOLALITY 282 mosm/kg (275-300); CALCIUM 7.9 mg/dL (8.5-10.1); CHLORIDE - SERUM 106 mmol/L (98-107); CREATININE - SERUM 0.7 mg/dL (0.6-1.3); GLUCOSE 147 mg/dL (74-106); PROTEIN - SERUM 5.3 g/dL (6.4-8.2); SODIUM 141 mmol/L (136-145); UREA NITROGEN 9 mg/dL (7-18); eGFR NON AFRICAN AMERICAN > 90 mL/min (90-120)
[2020-01-04 07:52] LABS: POTASSIUM - SERUM 2.6 mmol/L (3.5-5.1)
[2020-01-04 08:09] VITALS: BP 158/71
--- NOTE | 2020-01-04 09:09 | PN ---
PATIENT:HELENA MENDEZ MEDICAL RECORD: [id number] LOCATION:[facility] ADMISSION DATE: 12/26/19 PROGRESS NOTE DATE OF SERVICE: 01/03/2020 SUBJECTIVE: The patient's case was discussed with staff. He has no new complaint. OBJECTIVE: The patient is sleepy, but arousable. He has not had any significant behavior outbursts and that even includes when he was awakened and Tomas catheter was inserted on him today. ASSESSMENT: Delirium. PLAN: The patient is likely demented to begin with, but the current medical and toxic metabolic abnormalities are causing a great deal of confusion. In addition to this, obviously the prednisone can have a significant effect on mood and lability. He is receiving medications on a scheduled and p.r.n. basis to control his behavior and at this point seems to be working reasonably well. Hopefully, as his condition improves, the need for those medications will be diminished. TRANSINT:[id number] Voice Confirmation ID: [id number] DOCUMENT ID: [id number] GEREMIAS SHULTZ MD at 0909 CC: [id number] DICTATION DATE: 01/03/20 1743 SEAFOOD FARMER: 01/03/20 2324 ADM IN [facility] [address] [place] [address]
--- NOTE | 2020-01-04 11:27 | NUR ---
PATIENT IN BED WATCHING TV. FAMILY AT BEDSIDE. DENIES PAIN OR NEEDS. BED LOW POSITION, CALL LIGHT IN REACH. WILL CONTINUE TO MONITOR.
[2020-01-04 12:12] VITALS: BP 117/63
[2020-01-04 15:37] VITALS: BP 131/72
[2020-01-05 04:00] VITALS: BP 171/78
--- NOTE | 2020-01-05 05:03 | NUR ---
ASSESSED AT THE BEGINNING OF THE SHIFT. PT IS MUCH MORE ALERT AND ORIENTED THAN THE PREVIOUS NIGHT AND IS NOW MAKING CONVERSATIONS AND JOKING WITH NURSES. HE REMAINS INCONT OF URINE BUT IS TRYING TO USE THE URINAL BY THE END OF THE SHIFT. HE IS SWALLOWING WELL WITH HIS MEDS. WE REDRESSED BOTH HIS LEGS AND LEFT ARM AT THE MIDDLE OF SHIFT. AND THE DUODERM ON HIS BOTTOM IS STILL SEALED AND SECURE. WE HAVE HAD A LOT OF TROUBLE WITH HIS TELEMETRY WORKING. WE HAVE TRIED EVERYTHING AND IT LOOKS RIGHT ABUT SHE WILL CALL AND TELL US THAT ITS OFF. WHEN WE CHECK IT IS PERFECTLY IN PLACE AND ATTACHED WELL. WE CHANGED THE LEADS, WIRES AND BOX WITH NO SUCCESS. SUPERVISIOR IS AWARE.
[2020-01-05 06:47] LABS: HEMATOCRIT 31.3 % (42.0-54.0); MCH 31.9 pg (26.0-34.0); MCHC 31.9 g/dL (31.0-37.0); MEAN PLATELET VOLUME 10.1 fL (7.4-10.4); RBC 3.13 10x6/uL (4.20-6.10); RDW 16.2 % (11.5-14.5); WBC 5.7 10x3/uL (4.8-10.8)
[2020-01-05 06:48] LABS: PLATELET COUNT 183 10x3/uL (130-400)
[2020-01-05 07:38] LABS: LYMPHOCYTES 20 % (15-50); MONOCYTES 2 % (2-11); NEUTROPHILS 78 % (40-80); PLATELET ESTIMATE NORMAL
[2020-01-05 09:17] LABS: ALBUMIN 2.2 g/dL (3.4-5.0); ALKALINE PHOSPHATASE 87 U/L (30-120); ALT (SGPT) 66 U/L (10-68); BILIRUBIN - TOTAL 0.87 mg/dL (0.2-1.3); CALC OSMOLALITY 281 mosm/kg (275-300); CALCIUM 8.5 mg/dL (8.5-10.1); CARBON DIOXIDE 25.3 mmol/L (21.0-32.0); CHLORIDE - SERUM 106 mmol/L (98-107); CREATININE - SERUM 0.7 mg/dL (0.6-1.3); GLUCOSE 163 mg/dL (74-106); MAGNESIUM - SERUM 1.9 mg/dL (1.8-2.4); PROTEIN - SERUM 5.2 g/dL (6.4-8.2); SODIUM 140 mmol/L (136-145); UREA NITROGEN 10 mg/dL (7-18); eGFR NON AFRICAN AMERICAN > 90 mL/min (90-120)
[2020-01-05 09:19] LABS: POTASSIUM - SERUM 3.5 mmol/L (3.5-5.1)
[2020-01-05 09:42] VITALS: BP 183/86
--- NOTE | 2020-01-05 11:31 | NUR ---
ADAPTEC AND KERLEX PLACED AROUND SKIN TEARS ON LEFT FOREARM. CL IN REACH. JA IN ROOM. WCTM
[2020-01-05 12:12] VITALS: BP 102/55
[2020-01-05 14:15] VITALS: BP 120/65
[2020-01-05 17:08] VITALS: BP 127/70
--- NOTE | 2020-01-05 17:30 | NUR ---
IV TUBING CHANGED. ORANGE CAPS AND LABELS APPLIED
--- NOTE | 2020-01-05 18:30 | NUR ---
DRESSING CHANGES TO BILAT LOWER EXTREMITIES AND LEFT UPPER ARM.
[2020-01-05 20:00] VITALS: BP 129/67
--- NOTE | 2020-01-05 21:34 | NUR ---
IN PATIENT ROOM. PATIENT ALERT AND ORIENTED TO SELF AND PLACE. EXPLAINED TO PATIENT THAT THIS NURSE NEEDED TO ASSESS BLOOD SUGAR. PATIENT HANDED THIS NURSE HIS FINGER AND ALLOWED FSBS. RESULT 210. EXPLAINED TO PATIENT THIS NURSE WAS GOING TO CHECK PULSE WITH PULSE OXIMETER, PATIENT ALLOWED AND PULSE CURRENTLY 69. SCANNED MEDICATIONS. EXPLAINED TO PATIENT EACH ONE. ASKED PATIENT IF HE HAD ANY PROBLEMS SWALLOWING, PATIENT SHOOK HEAD NO. PROMPTED PATIENT THAT PILLS WERE READY. PATIENT REACHED FOR WATER THAT WAS IN THIS NURSES HAND, PATIENT THEN HIT THIS NURSES ARM AND KNOCKING WATER TO THE FLOOR. PATIENT REFUSING MEDICATIONS, EVEN WITH FURTHER INSTRUCTION. EXPLAINED THE IMPORTANCE OF EACH MEDICATION TO PATIENT. PATIENT REPLIED "I DON'T FUCKING CARE. YOU NEED TO FIND SOMEWHERE ELSE TO GO BECAUSE I JUST WANT TO ." PATIENT ALREADY ON SUICIDAL IDEATION FOR THREATS OF SUICIDE. ASKED PATIENT IF HE HAD ANY PLANS, PATIENT SHOOK HIS HEAD. ONE ON ONE PRECAUTIONS IN PLACE FOR PATIENT SAFETY. REPORTED TO CHARGE NURSE TO INFORM.
--- NOTE | 2020-01-05 22:50 | NUR ---
PATIENT CALM AND COMPLIANT NOW. PATIENT TOOK MEDICATIONS ORDER. REAPPLIED TELEMTREY MONITOR. SI PRECAUTIONS IN PLACE, ONE ON ONE. NO FURTHER NEEDS AT THIS TIME.
[2020-01-06] VITALS: BP 152/83
--- NOTE | 2020-01-06 01:20 | NUR ---
PATIENT PULLED IV OUT AND TELE MONITOR OFF. PATIENT REFUSES TO RESTART IV AT THIS TIME.
--- NOTE | 2020-01-06 03:35 | NUR ---
PATIENT AGITATED AT THIS TIME AND THREATENING TO "PUNCH" STAFF. PATIENT IS ALSO CALLING 911 AT THIS TIME. WILL ADMINISTER HALDOL PER ORDERS.
[2020-01-06 04:00] VITALS: BP 126/60
--- NOTE | 2020-01-06 05:42 | NUR ---
PATIENT BECOMING COMBATIVE AGAIN. REFUSING FSBS. REFUSING ANYTHING IV. HAS UNSCREWED TUBING FROM IV INSERTION SITE. IV APPEARS TO STILL BE PATENT, ATTEMPTED TO RECONNECT AND PATIENT STATED "THERE YOU GO TRYING TO STEAL SHIT AGAIN" AND FLAILED ARM AT THIS NURSE IN ATTEMPT TO HIT. TELE ANTENNA MACHINE OPERATOR CALLED BECAUSE PATIENT PULLED IV LEADS OFF. EXPLAINED PATIENT BECOMING COMBATIVE. ASKED TO GIVE PATIENT SOMETIME TO CALM DOWN AND WILL ATTEMPT TO REAPPLY TELE.
--- NOTE | 2020-01-06 06:17 | NUR ---
PATIENT PULLED OUT IV. CATH IS IN TACT. PATIENT BECOMING INCCREASINGLY COMBATIVE. USING TELE MONITOR TO HIT NURSING STAFF. STRIKES NURSES AND BIOCHEMIST WHEN ATTEMPTING TO CLEAN PATIENT UP. ADMINISTERED PRN ELADIODON PER ORDER.
--- NOTE | 2020-01-06 06:25 | NUR ---
CLEANED PATIENT AND BED CHANGE PROVIDED. PATIENT CUSSING NURSING AND SECURITY STAFF. STILL ATTEMPTING TO STRIKE AT THIS TIME. SCREAMING AND DOES NOT LISTENT TO REDIRECTION.
[2020-01-06 07:08] LABS: BASOPHILS 0.6 % (0-2); EOSINOPHILS 0.4 % (0-7); HEMATOCRIT 31.4 % (42.0-54.0); HEMOGLOBIN 9.5 g/dL (13.5-17.5); IMMATURE GRANULOCYTES 8.5 % (0-5); LYMPHOCYTES 12.2 % (15-50); MCH 30.7 pg (26.0-34.0); MCHC 30.3 g/dL (31.0-37.0); MCV 101.6 fL (80.0-100.0); MEAN PLATELET VOLUME 10.4 fL (7.4-10.4); MONOCYTES 9.9 % (2-11); NEUTROPHILS 68.4 % (40-80); PLATELET COUNT 185 10x3/uL (130-400); RBC 3.09 10x6/uL (4.20-6.10); RDW 16.2 % (11.5-14.5); WBC 4.8 10x3/uL (4.8-10.8)
[2020-01-06 07:47] LABS: ALBUMIN 2.1 g/dL (3.4-5.0); ALKALINE PHOSPHATASE 87 U/L (30-120); ALT (SGPT) 56 U/L (10-68); BILIRUBIN - TOTAL 0.71 mg/dL (0.2-1.3); CALC OSMOLALITY 280 mosm/kg (275-300); CALCIUM 7.8 mg/dL (8.5-10.1); CARBON DIOXIDE 27.8 mmol/L (21.0-32.0); CHLORIDE - SERUM 106 mmol/L (98-107); CREATININE - SERUM 0.7 mg/dL (0.6-1.3); GLUCOSE 151 mg/dL (74-106); POTASSIUM - SERUM 3.7 mmol/L (3.5-5.1); PROTEIN - SERUM 4.6 g/dL (6.4-8.2); SODIUM 140 mmol/L (136-145); UREA NITROGEN 10 mg/dL (7-18); eGFR NON AFRICAN AMERICAN > 90 mL/min (90-120)
[2020-01-06 09:45] VITALS: BP 150/63
--- NOTE | 2020-01-06 11:30 | NUR ---
IV THERAPY STARTED IN RIGHT HAND BY KAMRAN REZA WITH ONE ATTEMPT. TWO FAILED ATTEMPTS BY ME. DRESSING TO THE RIGHT UPPER ARM SKIN TEAR. CL IN REACH. WCTM NO FURTHER NEEDS AT THIS TIME. WCTM
[2020-01-06 12:11] VITALS: BP 125/65
[2020-01-06 17:32] VITALS: BP 133/61
[2020-01-06 20:26] VITALS: BP 110/60
--- NOTE | 2020-01-06 20:36 | NUR ---
PATIENT RESTING IN BED WITH AT BEDSIDE AND NO S/S OF DISTRESS. PATIENT IS COOPERATIVE AT THIS TIME AND DENIES NEEDS. BED IN LOWEST POSITION, CALL LIGHT WITHIN REACH, AND BED ALARM ON. ENCOURAGED THE PATIENT TO CALL IF HE HAS NEEDS. WILL CONTINUE TO MONITOR.
[2020-01-07 00:16] VITALS: BP 131/94
--- NOTE | 2020-01-07 00:30 | NUR ---
PATIENT AGITATED AT THIS TIME. PATIENT IS PULLING HIS TELE MONITOR OFF AND ATTEMPTING TO PULL OFF HIS DRESSINGS. WILL ADMINISTER ATIVAN PO.
--- NOTE | 2020-01-07 01:08 | NUR ---
RESITED PATIENT'S IV TO THE RIGHT FA WITH A 22G ON THE FIRST ATTEMPT
--- NOTE | 2020-01-07 02:23 | NUR ---
PATIENT IS AGITATED AGAIN AT THIS TIME. PATIENT PULLED IV OUT AND PULLED DRESSINGS OFF OF HIS ARMS. PATIENT IS THREATENING TO HIT STAFF.
[2020-01-07 04:30] VITALS: BP 138/66
--- NOTE | 2020-01-07 05:58 | NUR ---
ATTEMPTED TO RESTART PATIENT'S IV. PATIENT REFUSED.
[2020-01-07 08:54] VITALS: BP 125/76
[2020-01-07 09:49] LABS: HEMOGLOBIN 9.9 g/dL (13.5-17.5); MCH 31.4 pg (26.0-34.0); MCHC 30.9 g/dL (31.0-37.0); MCV 101.6 fL (80.0-100.0); MEAN PLATELET VOLUME 9.6 fL (7.4-10.4); PLATELET COUNT 199 10x3/uL (130-400); RBC 3.15 10x6/uL (4.20-6.10); RDW 16.3 % (11.5-14.5); WBC 5.6 10x3/uL (4.8-10.8)
[2020-01-07 10:06] LABS: ALBUMIN 2.1 g/dL (3.4-5.0); ALKALINE PHOSPHATASE 90 U/L (30-120); ALT (SGPT) 52 U/L (10-68); BILIRUBIN - TOTAL 0.69 mg/dL (0.2-1.3); CALC OSMOLALITY 282 mosm/kg (275-300); CALCIUM 8.2 mg/dL (8.5-10.1); CARBON DIOXIDE 30.9 mmol/L (21.0-32.0); CHLORIDE - SERUM 108 mmol/L (98-107); CREATININE - SERUM 0.7 mg/dL (0.6-1.3); GLUCOSE 156 mg/dL (74-106); POTASSIUM - SERUM 3.9 mmol/L (3.5-5.1); SODIUM 141 mmol/L (136-145); UREA NITROGEN 11 mg/dL (7-18); eGFR NON AFRICAN AMERICAN > 90 mL/min (90-120)
[2020-01-07 11:36] LABS: LYMPHOCYTES 14 % (15-50); MONOCYTES 13 % (2-11); NEUTROPHILS 56 % (40-80); PLATELET ESTIMATE NORMAL; SMUDGE CELLS OCC
[2020-01-07 13:05] VITALS: BP 120/57
[2020-01-07 14:19] LABS: PATH REVIEW PERIPHERAL SMEAR REVIEWED
[2020-01-07 17:37] VITALS: BP 157/79
--- NOTE | 2020-01-07 18:19 | NUR ---
I have reviewed this patient and I concur with the Shift Assessment completed by the Licensed Practical Nurse today this shift.
[2020-01-07 22:03] VITALS: BP 157/67
--- NOTE | 2020-01-07 22:22 | NUR ---
PATIENT RESTING IN BED. WOKE PATIENT FOR HIS NIGHT MEDS. PATIENT DENIES PAIN AT THIS TIME. HELD TRAMADOL AND GEODON AT THIS TIME. BED IN LOWEST POSITION AND CL WITHIN REACH. ENCOURAGED THE PATIENT TO CALL IF SHE HAS NEEDS. WILL CONTINUE TO MONITOR.
[2020-01-08 04:00] VITALS: BP 164/97
[2020-01-08 09:54] LABS: BASOPHILS 0.3 % (0-2); EOSINOPHILS 0.1 % (0-7); HEMATOCRIT 33.8 % (42.0-54.0); HEMOGLOBIN 10.6 g/dL (13.5-17.5); IMMATURE GRANULOCYTES 8.5 % (0-5); LYMPHOCYTES 14.1 % (15-50); MCH 31.6 pg (26.0-34.0); MCHC 31.4 g/dL (31.0-37.0); MCV 100.9 fL (80.0-100.0); MEAN PLATELET VOLUME 9.6 fL (7.4-10.4); MONOCYTES 10.1 % (2-11); NEUTROPHILS 66.9 % (40-80); PLATELET COUNT 232 10x3/uL (130-400); RBC 3.35 10x6/uL (4.20-6.10); RDW 16.3 % (11.5-14.5); WBC 6.7 10x3/uL (4.8-10.8)
[2020-01-08 10:11] LABS: ALBUMIN 2.4 g/dL (3.4-5.0); ALKALINE PHOSPHATASE 98 U/L (30-120); ALT (SGPT) 52 U/L (10-68); BILIRUBIN - TOTAL 0.87 mg/dL (0.2-1.3); CALC OSMOLALITY 283 mosm/kg (275-300); CALCIUM 8.6 mg/dL (8.5-10.1); CARBON DIOXIDE 33.3 mmol/L (21.0-32.0); CHLORIDE - SERUM 106 mmol/L (98-107); CREATININE - SERUM 0.8 mg/dL (0.6-1.3); GLUCOSE 132 mg/dL (74-106); PROTEIN - SERUM 5.5 g/dL (6.4-8.2); SODIUM 142 mmol/L (136-145); UREA NITROGEN 11 mg/dL (7-18); eGFR NON AFRICAN AMERICAN > 90 mL/min (90-120)
[2020-01-08 10:14] LABS: POTASSIUM - SERUM 3.3 mmol/L (3.5-5.1)
[2020-01-08 11:03] VITALS: BP 147/72
--- NOTE | 2020-01-08 11:22 | NUR ---
SPOKE TO GURMEET LLANOS IN REGARDS TO PT LOVENOX, PER Mikey TONEY. DC NO OTHER NEEDS AT THIS TIME CONTINUE WITH PLAN OF CARE
--- NOTE | 2020-01-08 13:57 | MORECARE ---
CASE MANAGEMENT DISCHARGE SUMMARY PATIENT: HELENA MENDEZ UNIT: [id number] ADM DATE: 12/26/19 AGE: 69 : 48 SEX: M ROOM/BED: D.2230 AUTHOR: CATHY LINN PHYSICIAN: REFERRING PHYSICIAN: MAGGI CONTRERAS DO DATE OF SERVICE: 01/08/20 Discharge Plan Patient Name: HELENA MENDEZ Facility: [facility]:[place] : 1950 Planned Disposition: Home Hlth Svc w Plan Readm Anticipated Discharge Date: Discharge Date: Expected LOS: Initial Reviewer: [id number] Initial Review Date: 01/03/2020 Generated: 01/08/20 2:56 pm Comments DCP- Discharge Planning Updated by [id number]: Nica Kaiser on 01/08/20 12:[address] Patient Name: HELNEA MENDEZ Admission Status: Elective Accout number: [id number] Admission Date: 12-26-2019 : 1950 Admission Diagnosis:UNSPECIFIED ATRIAL FLUTTER Attending: MAGGI CONTRERAS Current LOS: 13 Anticipated DC Date: Planned Disposition: Home Hlth Svc w Plan Readm Primary Insurance: MEDICARE A & B Discharge Planning Comments: CM MET WITH PATIENT AND HIS . PLAN FOR PENITENTIARY, JESSICA AND IMM SIGNED. BROUGHT CLOTHES FOR HIM IN PENITENTIARY. LUIS ENRIQUE CHARGE NURSE IN PENITENTIARY NOTIFIED AND FS FAXED. WAITING CALL BACK. Customer Pricing Manager: Nica Kaiser DCP- Discharge Planning Updated by [id number]: Nica Kaiser on 01/03/20 1:[address] Patient Name: HELENA MENDEZ Admission Status: Elective Accout number: [id number] Admission Date: 12-26-2019 : 1950 Admission Diagnosis:UNSPECIFIED ATRIAL FLUTTER Attending: MAGGI CONTRERAS Current LOS: 8 Anticipated DC Date: Planned Disposition: Home Hlth Svc w Plan Readm Primary Insurance: MEDICARE A & B Discharge Planning Comments: CM SPOKE WITH OVER THE PHONE. PLAN IS FOR TO RETURN HOME AND [facility]ME [facility]. CM TO FOLLOW AND ASSIST NEEDED. Customer Pricing Manager: Nica Kaiser DCPIA - Discharge Planning Initial Assessment Updated by [id number]: Nica Kaiser on 01/03/20 1:58 pm * PCP MARTINI * Pharmacy [address] * Preadmission Environment Home with Family * Other Equipment CANE, WC,WALKER, CRUTCHES * Community resources currently utilized Home Health * Please name any agencies selected above. [facility] * Additional services required to return to the preadmission environment? No * Can the patient safely return to the preadmission environment? Yes * Has this patient been hospitalized within the prior 30 days at any hospital? No Coverage Notice Reviewer: [id number] Kaiser Notice Issued Date-Time: 01/08/2020 13:53 Notice Type: IM Discharge Notice Notice Delivered To: Relationship to Patient: Buffing And Polishing Wheel Repairer Name: Delivery Method: - Celena Days: Prior Verbal Notification: Recipient Understood Notice: Recipient Signature: Med Rec Note Co-signed by Attending: Coverage Notice Comment: Reviewer: [id number] Zahra Kaiser Notice Issued Date-Time: 01/08/2020 13:53 Notice Type: Patient Choice Letter Notice Delivered To: Relationship to Patient: Buffing And Polishing Wheel Repairer Name: Delivery Method: HAND - Hand Delivered Celena Days: Prior Verbal Notification: Recipient Understood Notice: Recipient Signature: Med Rec Note Co-signed by Attending: Coverage Notice Comment: usp Last DP export: 01/03/20 1:07 p Patient Name: VANESSA, HELENA Page 73749 at 1357 All edits/amendments must be made on the electronic document DICTATION DATE: 01/08/20 1357 DISABILITY MANAGER: MARI 01/08/20 1357 RPT#: [id number] DC DATE: STATUS: ADM IN [facility] [address] [place] [address] END OF REPORT
--- NOTE | 2020-01-08 14:37 | NUR ---
Nutrition follow-up: Pts diet advanced to consistent CHO at lunch today from full liquids Pt ate ~60% of lunch per . Pt with no issues chewing or swallowing at this time. Labs reviewed Wt: 254# RDN following.
[2020-01-08 15:00] VITALS: BP 123/62
[2020-01-08 15:15] VITALS: BP 140/76
--- NOTE | 2020-01-08 15:50 | MORECARE ---
CASE MANAGEMENT DISCHARGE SUMMARY PATIENT: HELENA MENDEZ UNIT: [id number] ADM DATE: 12/26/19 AGE: 69 : 48 SEX: M ROOM/BED: D.2230 AUTHOR: CATHY LINN PHYSICIAN: REFERRING PHYSICIAN: MAGGI CONTRERAS DO DATE OF SERVICE: 01/08/20 Discharge Plan Patient Name: HELENA MENDEZ Facility: [facility]:[place] : 1950 Planned Disposition: Home Hlth Svc w Plan Readm Anticipated Discharge Date: Discharge Date: Expected LOS: Initial Reviewer: [id number] Initial Review Date: 01/03/2020 Generated: 01/08/20 4:49 pm Comments DCP- Discharge Planning Updated by [id number]: Nica Kaiser on 01/08/20 2:[address] Patient Name: HELENA MENDEZ Admission Status: Elective Accout number: [id number] Admission Date: 12-26-2019 : 1950 Admission Diagnosis:UNSPECIFIED ATRIAL FLUTTER Attending: MAGGI CONTRERAS Current LOS: 13 Anticipated DC Date: Planned Disposition: Home Hlth Svc w Plan Readm Primary Insurance: MEDICARE A & B Discharge Planning Comments: [facility] WILL ACCEPT PATIENT TODAY TO ROOM 1122. RN CAN CALL REPORT AT EXT [phone]. Hogshead Hand: Nica Kaiser DCP- Discharge Planning Updated by [email or web address]: Nica Kaiesr on 01/08/20 12:[address] Patient Name: HELENA MENDEZ Admission Status: Elective Accout number: [id number] Admission Date: 12-26-2019 : 1950 Admission Diagnosis:UNSPECIFIED ATRIAL FLUTTER Attending: MAGGI CONTRERAS Current LOS: 13 Anticipated DC Date: Planned Disposition: Home Hlth Svc w Plan Readm Primary Insurance: MEDICARE A & B Discharge Planning Comments: CM MET WITH PATIENT AND HIS . PLAN FOR [facility], JESSICA AND IMM SIGNED. BROUGHT CLOTHES FOR HIM IN [facility]. LUIS ENRIQUE CHARGE NURSE IN [facility] NOTIFIED AND FS FAXED. WAITING CALL BACK. Hogshead Hand: Nica Kaiser DCP- Discharge Planning Updated by [id number]: Nica Kaiser on 01/03/20 1:[address] Patient Name: HELENA MENDEZ Admission Status: Elective Accout number: [id number] Admission Date: 12-26-2019 : 1950 Admission Diagnosis:UNSPECIFIED ATRIAL FLUTTER Attending: MAGGI CONTRERAS Current LOS: 8 Anticipated DC Date: Planned Disposition: Home Hlth Svc w Plan Readm Primary Insurance: MEDICARE A & B Discharge Planning Comments: CM SPOKE WITH OVER THE PHONE. PLAN IS FOR TO RETURN HOME AND RESUME [facility]. CM TO FOLLOW AND ASSIST NEEDED. Hogshead Hand: Nica Kaiser DCPIA - Discharge Planning Initial Assessment Updated by [id number]: Nica Kaiser on 01/03/20 1:58 pm * PCP MARTINI * Pharmacy [address] * Preadmission Environment Home with Family * Other Equipment CANE, WC,WALKER, CRUTCHES * Community resources currently utilized Home Health * Please name any agencies selected above. [facility] * Additional services required to return to the preadmission environment? No * Can the patient safely return to the preadmission environment? Yes * Has this patient been hospitalized within the prior 30 days at any hospital? No Coverage Notice Reviewer: [id number] Zahra Kaiser Notice Issued Date-Time: 01/08/2020 13:53 Notice Type: IM Discharge Notice Notice Delivered To: Relationship to Patient: Dairy Manufacturing Technologist Name: Delivery Method: - Celena Days: Prior Verbal Notification: Recipient Understood Notice: Recipient Signature: Med Rec Note Co-signed by Attending: Coverage Notice Comment: Reviewer: [id number] Zahra Kaiser Notice Issued Date-Time: 01/08/2020 13:53 Notice Type: Patient Choice Letter Notice Delivered To: Relationship to Patient: Dairy Manufacturing Technologist Name: Delivery Method: HAND - Hand Delivered Celena Days: Prior Verbal Notification: Recipient Understood Notice: Recipient Signature: Med Rec Note Co-signed by Attending: Coverage Notice Comment: half-way Last DP export: 01/08/20 12:57 p Patient Name: HELENA MENDEZ Page [id number] at 1550 All edits/amendments must be made on the electronic document DICTATION DATE: 01/08/201548 CONSULTING SOLUTION MANAGER: MARI 01/08/20 1549 RPT#: [id number] DC DATE: STATUS: ADM IN [facility] [address] [place] [address] END OF REPORT
[2020-01-08] MEDS ORDERED: FLOMAX0.4 MG PO (17:04)
[2020-01-08] MEDS ORDERED: GEODON20 MG PO (17:06)
[2020-01-08] MEDS ORDERED: PREDNISONE10 MG PO (17:12)
[2020-01-08] MEDS ORDERED: LEVAQUIN750 MG PO ×2 (17:13→21:06)
[2020-01-08] MEDS ORDERED: FLAGYL500 MG PO (17:13)
--- NOTE | 2020-01-08 18:46 | NUR ---
DISCHARGE PAPERWORK SIGNED BY . PT TRANSFERRED BY BED TO CARE.
--- NOTE | 2020-01-09 09:27 | MORECARE ---
CASE MANAGEMENT DISCHARGE SUMMARY PATIENT: HELENA MENDEZ UNIT: [id number] ADM DATE: 12/26/19 AGE: 69 : 48 SEX: M ROOM/BED: D.2230 AUTHOR: CATHY LINN PHYSICIAN: REFERRING PHYSICIAN: MAGGI CONTRERAS DO DATE OF SERVICE: 01/09/20 Discharge Plan Patient Name: HELENA MENDEZ Facility: [facility]:[place] : 1950 Planned Disposition: Home Hlth Svc w Plan Readm Anticipated Discharge Date: Discharge Date: 01/08/2020 Expected LOS: Initial Reviewer: [email or web address] Initial Review Date: 01/03/2020 Generated: 01/09/20 10:27 am Comments DCP- Discharge Planning Updated by [id number]: Nica Kaiser on 01/08/20 2:[address] Patient Name: HELENA MENDEZ Admission Status: Elective Accout number: [id number] Admission Date: 12-26-2019 : 1950 Admission Diagnosis:UNSPECIFIED ATRIAL FLUTTER Attending: MAGGI CONTRERAS Current LOS: 13 Anticipated DC Date: Planned Disposition: Home Hlth Svc w Plan Readm Primary Insurance: MEDICARE A & B Discharge Planning Comments: [facility] WILL ACCEPT PATIENT TODAY TO ROOM 1122. RN CAN CALL REPORT AT EXT [phone]. Clinical Data Assistant: Nica Kaiser DCP- Discharge Planning Updated by [id number]: Nica Kaiser on 01/08/20 12:[address] Patient Name: HELENA MENDEZ Admission Status: Elective Accout number: [id number] Admission Date: 12-26-2019 : 1950 Admission Diagnosis:UNSPECIFIED ATRIAL FLUTTER Attending: MAGGI CONTRERAS Current LOS: 13 Anticipated DC Date: Planned Disposition: Home Hlth Svc w Plan Readm Primary Insurance: MEDICARE A & B Discharge Planning Comments: CM MET WITH PATIENT AND HIS . PLAN FOR LONG-TERM, JESSICA AND IMM SIGNED. BROUGHT CLOTHES FOR HIM IN LONG-TERM. LUIS ENRIQUE CHARGE NURSE IN LONG-TERM NOTIFIED AND FS FAXED. WAITING CALL BACK. Clinical Data Assistant: Nica Kaiser DCP- Discharge Planning Updated by [id number]: Nica Kaiser on 01/03/20 1:[address] Patient Name: HELENA MENDEZ Admission Status: Elective Accout number: [id number] Admission Date: 12-26-2019 : 1950 Admission Diagnosis:UNSPECIFIED ATRIAL FLUTTER Attending: MAGGI CONTRERAS Current LOS: 8 Anticipated DC Date: Planned Disposition: Home Hlth Svc w Plan Readm Primary Insurance: MEDICARE A & B Discharge Planning Comments: CM SPOKE WITH OVER THE PHONE. PLAN IS FOR TO RETURN HOME AND [facility]UME [facility]. CM TO FOLLOW AND ASSIST NEEDED. Clinical Data Assistant: Nica Kaiser DCPIA - Discharge Planning Initial Assessment Updated by [id number]: Nica Kaiser on 01/03/20 1:58 pm * PCP MARTINI * Pharmacy [address] * Preadmission Environment Home with Family * Other Equipment CANE, WC,WALKER, CRUTCHES * Community resources currently utilized Home Health * Please name any agencies selected above. [facility] * Additional services required to return to the preadmission environment? No * Can the patient safely return to the preadmission environment? Yes * Has this patient been hospitalized within the prior 30 days at any hospital? No Coverage Notice Reviewer: [id number] Zahra Kaiser Notice Issued Date-Time: 01/08/2020 13:53 Notice Type: IM Discharge Notice Notice Delivered To: Relationship to Patient: Sportspersons Name: Delivery Method: - Celena Days: Prior Verbal Notification: Recipient Understood Notice: Recipient Signature: Med Rec Note Co-signed by Attending: Coverage Notice Comment: Reviewer: [id number] Zahra Kaiser Notice Issued Date-Time: 01/08/2020 13:53 Notice Type: Patient Choice Letter Notice Delivered To: Relationship to Patient: Sportspersons Name: Delivery Method: HAND - Hand Delivered Celena Days: Prior Verbal Notification: Recipient Understood Notice: Recipient Signature: Med Rec Note Co-signed by Attending: Coverage Notice Comment: long-term Last DP export: 01/08/20 2:50 p Patient Name: HELENA MENDEZ Page [phone] at 0927 All edits/amendments must be made on the electronic document DICTATION DATE: 01/09/20926 FOREST PATHOLOGIST: MARI 01/09/20926 RPT#: [id number] DC DATE:01/08/20 STATUS: DIS IN [facility] [address] [place] [address] END OF REPORT
== END 2020-01-08 18:47 | DRG 391 ==
LOC: D.ER 14:24 → D.MS 21:00 → D.ICU 01-02 10:25 → D.MS 01-02 11:00
PROVIDERS: Family Medicine; Family Medicine Adult Medicine; ADMIT Family Medicine; ATTEND Family Medicine
PROC: 05HY33Z Insertion of Infusion Device into Upper Vein, Percutaneous Approach (ICD-10-PCS; principal; 2019-12-31)
DX: K57.20 Diverticulitis of large intestine with perforation and abscess without bleeding (principal); J18.9 Pneumonia, unspecified organism; G93.41 Metabolic encephalopathy; I48.92 Unspecified atrial flutter; I50.20 Unspecified systolic (congestive) heart failure; I48.20 Chronic atrial fibrillation, unspecified; J98.11 Atelectasis; J44.1 Chronic obstructive pulmonary disease with (acute) exacerbation; R55 Syncope and collapse; D53.9 Nutritional anemia, unspecified; I11.0 Hypertensive heart disease with heart failure; E11.40 Type 2 diabetes mellitus with diabetic neuropathy, unspecified; K21.9 Gastro-esophageal reflux disease without esophagitis; M35.3 Polymyalgia rheumatica; K66.8 Other specified disorders of peritoneum; I48.0 Paroxysmal atrial fibrillation; R41.0 Disorientation, unspecified; R33.9 Retention of urine, unspecified; Y95 Nosocomial condition; E87.6 Hypokalemia; G47.33 Obstructive sleep apnea (adult) (pediatric); N40.0 Benign prostatic hyperplasia without lower urinary tract symptoms; R53.81 Other malaise

== ENCOUNTER 2020-01-08 18:53 | Inpatient (IN) | payer MEDICARE, OTHER ==
[~2020-01-08 18:53] MED LIST: ACETAMINOPHEN325 MG PO; BETAPACE 80 MG80 MG PO; CARDIZEM 90 MG90 MG PO; ELIQUIS5 MG PO; FLAGYL500 MG PO; FLOMAX0.4 MG PO; FUROSEMIDE20 MG PO; GABAPENTIN300 MG PO; GEODON20 MG PO; GLUCOPHAGE500 MG PO; HEALTHYLAX17 GM PO; HUMULIN R100 UNIT/1 SC; HYDROXYCHLOROQ200 MG PO; K-DUR20 MEQ PO; KAZANO 12.5-501 EACH PO; LANTUS INS100 UNITS/ SC; LEVAQUIN750 MG PO; LIPITOR80 MG PO; METHOCARBAMOL500 MG PO; OS-CAL500 MG PO; PAMELOR10 MG PO; PREDNISONE10 MG PO; PREDNISONE5 MG PO; PROTONIX40 MG PO; RESTORIL15 MG PO; TRAZODONE HCL150 MG PO; ULTRAM50 MG PO; ZOFRAN ODT4 MG/UDTAB PO
[2020-01-08] MEDS ORDERED: LEVAQUIN750 MG PO (21:06)
[2020-01-08 21:55] VITALS: BP 162/70
[2020-01-08 22:28] VITALS: BP 162/70
--- NOTE | 2020-01-08 23:59 | NUR ---
NEW ADMIT TO DR SHULTZ FROM MED/SURG FLOOR RELATED TO ALTERED MENTAL STATUS AND AGGRESSION. PATIENT RECEIVED IN BED WITH STAFF AT HIS SIDE. CALM AND COOPERATIVE WITH CARE AND ADMIT ASSESSMENT. DENIES ANY THOUGHTS OF SELF HARM. NO SIGNS OF AGGRESSION. ALERT AND ORIENTED X4. SIGNED ADMIT CONSENTS. STATES HE WISHES TO BE A FULL CODE. SCABS AND SORES ON BILAT ARMS. WOUND TO LEFT HEAL. DRESSINGS ON LEFT AND RIGHT CALF REMOVED, DRAINING WOUND TO LEFT SIDE. BOTTOM HAS SEVEN SMALL ULCERS. HEALS BRIDGED. PT USES URINAL. HE IS RESTING WITH EYES CLOSED AT THIS TIME. RICHARD ALARM IN PLACE AND ACTIVE.
--- NOTE | 2020-01-09 07:50 | NUR ---
NURSE COVERED PTS PRESSURE ULCERS WITH MEPILEX. AREAS PINK AND OPEN. STAGE 1 PRESSURE ULCERS TO BUTTOCKS AND LEFT CALF AND LEFT HEEL. AREAS COVERED. PT DENIES PAIN.
[2020-01-09 09:21] LABS: CHOL - HDL RATIO 3.6 ratio (2.3-4.9); LDL-HDL RATIO 1.7 ratio (1.5-3.5); THYROID STIMULATING HORMONE 1.63 uIU/mL (0.36-3.74)
[2020-01-09 10:26] VITALS: BP 115/95
[2020-01-09 13:39] VITALS: Wt 98.2 kg
--- NOTE | 2020-01-09 17:14 | NUR ---
IS ORIENTED X 4.COMPLIANT WITH STAFF AND MEDS.C/O NECK AND BACK PAIN.POOR RESPONSE RECEIVED TO TYLENOL AND TRAMADOL.ICE PACK TO NECK FOR COMFORT WITH POOR RESPONSE.IS RESTLESS AND ATTEMPTS TO MEET HIS NEEDS AND WANTS RECEIVED WITH A POOR RESPONSE.SITTING A RECLINER,PINK SEAT CUSHION PROVIDE FOR HIS COMFORT. CHANGED ORDER FOR TRAMADOL TO TID.WILL CONTINUE WITH CURRENT PLAN OF CARE,MONITOR FOR SAFETY AND CHANGES.
--- NOTE | 2020-01-09 17:32 | NUR ---
THREATENING TO THROW HIMSELF ON THE FLOOR.HALDOL 2MG IM TO RT DELTOID GIVEN.
--- NOTE | 2020-01-09 19:15 | NUR ---
NURSE GAVE PHONE TIMES.
[2020-01-09 20:38] VITALS: BP 123/67
--- NOTE | 2020-01-09 21:28 | NUR ---
RECEIVED PATIENT IN DAYROOM, HE IS CONFUSED, HE IS A TOTAL CARE PATIENT REGARDING ADL'S. CONFUSED, COMPLIANT WITH MEDS, HE IS AGITATED. CAN NOT REASON WITH HIM. WILL FOLLOW POC
[2020-01-10 07:15] LABS: RAPID PLASMA REAGIN Non Reactive (Non Reactive)
--- NOTE | 2020-01-10 07:40 | NUR ---
LAB CAME TO DRAW BLOOD ON PT. PT REFUSED TO ALLOW CURING FINISHER TO DRAW PT BLOOD. WILL ATTEMPT AT A LATER TIME.
--- NOTE | 2020-01-10 12:30 | NUR ---
PT REFUSED TO EAT MORE THAN A FEW BITES OF 12 P.M. MEAL. NURSE ATTEMPTED TO PERFORM PERICARE ON PT. HE REFUSED. WILL ATTEMPT AGAIN.
--- NOTE | 2020-01-10 13:47 | NUR ---
YOSHI SPOKE WITH PT'S , JA, TO DISCUSS PT'S CONDITION. YOSHI STATED PT HAS BEEN AGITATED, REFUSING LAB, REFUSING TO EAT MOST OF HIS LUNCH. JA ASKED ABOUT WHAT WILL HAPPEN IF HE DOESN'T IMPROVE. YOSHI DISCUSSED DIFFERENT LOC AND POSSIBLE HOSPICE IF PT DOESN'T IMPROVE. YOSHI STATED SHE DOESN'T RECOMMEND VISITATION TODAY DUE TO PT'S BEHAVIORS AND FEELING HE WILL ESCALATE IF SHE COMES. JA VOICED UNDERSTANDING OF PT'S CONDITION AND DISCUSSION.
--- NOTE | 2020-01-10 13:48 | NUR ---
PT LAYING IN BED AT THIS TIME. PT ACTED IF HE HAD A REMOTE IN HAND AND STATING "CHANNEL 32 AND 13 NOW. SOMEONE COME AND CHANGE THIS CHANNEL NOW." NURSE ATTEMPTED TO REDIRECT PT BEHAVIOR. UNABLE TO DO SO AT THIS TIME.
--- NOTE | 2020-01-10 14:42 | NUR ---
YELLING OUT ANGRILY OBSCENITIES.HAS REMOVED PADDING FROM BED RAIL PUT THERE TO PROTECT HIS LEGS WHEN TRYING TO GET OUT OF BED WITHOUT ASSIST.WILL NOT REDIRECT.HALDOL 2MG AND ATIVAN 0.5MG IM GIVEN TO RT.DELTOID.
--- NOTE | 2020-01-10 14:50 | NUR ---
PT SITTING UP IN BED AT THIS TIME. TAMIKO Joel RN WAS OUTSIDE PT ROOM. PT YELLED AT NURSE " COME HERE RIGHT NOW." NURSE DID NOT HAVE TIME TO RESPOND PT YELLED "COME HERE YOU BITCH AND FUCK ME RIGHT NOW." PT BEGAN TO BEAT ON THE BED RAILS. UNABLE TO REDIRECT PTS BEHAVIOR AT THIS TIME. NURSE ADMINISTERED PRN ATIVAN 0.5 MG AND HALDOL [address] SHULTZ PRN ORDER. PT TOLERATED WELL. BED ALARM IN PLACE AND WILL CONT TO MONITOR FOR EFFECTIVENESS.
--- NOTE | 2020-01-10 14:50 | NUR ---
prn effective at this time. pt is not yelling at staff members or attempting to grab them.
--- NOTE | 2020-01-10 15:23 | PSY ---
PATIENT NAME:HELENA MENDEZ MEDICAL RECORD: [id number] : [birth year] LOCATION:[facility] ADMISSION DATE: 01/08/20 ACCOUNT: [id number] PSYCHIATRIC EVALUATION DATE OF EVALUATION: 01/09/20 IDENTIFYING DATA: The patient is 69 years old and he is admitted to the hospital on a voluntary basis. CHIEF COMPLAINT: Confusion. HISTORY OF PRESENT ILLNESS: The patient was recently transferred from the medical floor where he had been admitted because of agitation, confusion and metabolic encephalopathy. He has now been stabilized and is transferred here for ongoing evaluation of his cognitive impairment. He is significantly impaired cognitively and has poor short-term memory. PAST MEDICAL HISTORY: Significant for hypertension, chronic atrial fibrillation, congestive heart failure, diabetes, neuropathy, polymyalgia rheumatica, gastroesophageal reflux disease and bilateral knee replacement. PAST PSYCHIATRIC HISTORY: Denied by the patient. FAMILY HISTORY: Significant for hypertension. ALLERGIES: No known drug allergies. CURRENT MEDICATIONS: Include Cardizem, Protonix, Lipitor, insulin, Betapace, Tylenol, Zofran, Ultram, and Levaquin. SOCIAL HISTORY: The patient is . He is a retired contractor. He has no history of drug or alcohol abuse. MENTAL STATUS EXAMINATION: The patient is awake, alert and oriented to person and place, but not fully to time or situation. His mood is depressed. His affect is constricted. Thought processes are circumstantial. Memory, concentration, and abstraction abilities are moderately impaired and he denies that he would seek to harm himself or others as well as overt psychotic symptoms. ASSETS: Supportive family members. LIABILITIES: Limited insight. DIAGNOSTIC IMPRESSION: AXIS I: Major neurocognitive disorder of the Alzheimer's type with behavioral disturbances. AXIS II: None. AXIS III: Diabetes, congestive heart failure, osteoarthritis. AXIS IV: Moderate stressors. AXIS V: Global assessment of functioning is 35. PLAN: At this time, the patient is admitted to the hospital secondary to confused, agitated behaviors associated with a dementing illness. He will be monitored for clinical changes associated with the symptoms. His long-term prognosis is guarded. TRANSINT:[id number] Voice Confirmation ID: [id number] DOCUMENT ID: [id number] GEREMIAS SHULTZ MD at 1523 CC: [id number] DICTATION DATE: 01/09/20 1629 HUNTING AND FISHING GUIDE: 01/09/20 1645 ADM IN [facility] [address] [facility]
--- NOTE | 2020-01-10 15:41 | NUR ---
pt allowed staff to bathe and reposition.
[2020-01-10 19:38] VITALS: BP 145/68
--- NOTE | 2020-01-11 00:24 | NUR ---
B) Patient is alert and oriented to self, verbally abusive toward staff, demanding, stated he was 'going to tear this place down'. shaking bedrail, I) Administered scheduled medications as ordered, monitored for safety R) Mediation compliant, resting now quietly, P) Continue plan of care.
--- NOTE | 2020-01-11 10:15 | NUR ---
PT SITTING IN CHAIR YELLING OUT HELP ME HELP ME. WHEN ASKED HE STATED COME HERE PLEASE. NURSE ASKED WHAT HE NEEDED. PT STATED HE WANTED US TO SCRATCH HIS BACK. STAFF DID NOT MOVE QUICK ENOUGH. PT BEGIN TO YELL "WELL IM GOING TO THROW THIS BRICK THROUGH THE WINDOW." STAFF DID ASSIST PT WITH HIS BACK. PT CONTS TO BE DEMANDING. WILL CONT PLAN OF CARE.
--- NOTE | 2020-01-11 10:34 | NUR ---
SPOKE WITH PT JA AT THIS TIME. PASSCODE GIVEN. REQUESTED AN UPDATE ON HOW HE WAS DOING TODAY AND HOW HE DID LAST NIGHT. NURSE STATED PT SLEPT 11.5 HOURS ON PREVIOUS SHIFT. PT WAS REPORTED TO BE DEMANDING, RESTLESS AND AGITATED ON PREVIOUS SHIFT. NURSE REPORTED THIS A.M. PT WAS BEING DEMANDING, RESTLESS AND SEXUALLY INAPPOPRIATE WITH STAFF. PT WAS REFUSING TO EAT AND ASSISTANCE WITH ADLS. STATED SO HE ISNT ANY BETTER THEN?" NURSE STATED HE WAS TAKING HIS MEDICATIONS HOPEFULLY WITH CONSTANT MONITORING AND MEDICATIONS HE WOULD HAVE A DECREASE IN BEHAVIORS. WE HAD TO GIVE THE MEDICATIONS TIME TO WORK. SHE STATED WOULD IT BE OKAY TO CALL HIM THIS AFTERNOON?" NURSE STATED THAT WOULD BE FINE. SHE VERBALIZED UNDERSTANDING.
--- NOTE | 2020-01-11 10:34 | NUR ---
The patient is assisted up out of bed, applied a new mepilex to his buttocks, he has multiple areas. He is wearing a bunny boot to his left foot, but it has left the perry from the waffle pattern, reveresed the boot. Three staff assisted patient up. He is sitting on a bunny pad, alarm on, in a carlos alberto chair. The patient has a urinal from home and he has used it this am. Provide prescribed meds. The patient is compliant with meds crushed in applesauce. Continue POC.
--- NOTE | 2020-01-11 11:02 | NUR ---
PT STATED HE WANTED TO USE THE RESTROOM STAFF. STAFF ATTEMPTED TO USE SIT TO STAND. PT TOLERATED SEMI WELL. PT THEN STATED HE DID NOT HAVE TO USE THE RESTROOM.
--- NOTE | 2020-01-11 12:30 | PN ---
PATIENT:HELENA MENDEZ MEDICAL RECORD: [id number] LOCATION:[facility] ADMISSION DATE: 01/08/20 PROGRESS NOTE DATE OF SERVICE: 01/10/2020 SUBJECTIVE: The patient's case was discussed with staff. He has no new complaint. OBJECTIVE: The patient is in good behavioral control. He has poor insight about his situation. He tolerates his medicines well. ASSESSMENT: Dementia. PLAN: The patient has been agitated with staff and throwing things on the floor. He is not eating adequately. He is unable to give me an explanation about this. He did have a swallow evaluation today and passed it. I am going to prescribe Megace for him to stimulate his appetite. He will be monitored for clinical changes associated with its use. His long-term prognosis is guarded. NTS:[id number] Voice Confirmation ID: [id number] DOCUMENT ID: [id number] GEREMIAS SHULTZ MD at 1230 CC: [id number] DICTATION DATE: 01/10/20 1618 DIE STAMPER: 01/10/20 194 ADM IN [facility] [address] [place] [address]
[2020-01-11 20:00] VITALS: BP 155/100
--- NOTE | 2020-01-11 21:01 | NUR ---
B.) PT IS ALERT AND ORIENTED TO SELF ONLY. HE WAS AGGITATED AT TIMES WITH STAFF. HE POURED WATER ON THE TABLE AND HIMSELF AND DEMANDED THAT THE STAFF CLEAN IT UP. I.) PROVIDED PM MEDICATIONS PRESCRIBED. REDIRECT OFTEN. R.) COMPLIANT AFTER A FEW ATTEMPTS. DIFFICULT TO REDIRECT. P.) WILL CONTINUE TO MONITOR.
--- NOTE | 2020-01-12 04:13 | NUR ---
PT BEHAVIOR HAS IMPROVED WITH STAFF THIS SHIFT AND IS ABLE TO VOICE NEEDS AND WANTS AT THIS TIME. HE HAS BEEN RECEIVING Q2H REPOSITIONING AND HAS BEEN THANKING THE STAFF FOR HELPING. WILL CONTINUE TO MONITOR.
--- NOTE | 2020-01-12 08:49 | PN ---
PATIENT:HELENA MENDEZ MEDICAL RECORD: [id number] LOCATION:[facility] ADMISSION DATE: 01/08/20 PROGRESS NOTE DATE OF SERVICE: 01/11/2020 SUBJECTIVE: The patient's case was discussed with staff. He has no new complaint. OBJECTIVE: The patient has been intermittently agitated, disruptive and sexually inappropriate with the staff. ASSESSMENT: Dementia. PLAN: Current medicines have been reviewed. His long-term prognosis is guarded. Both supportive and educational interventions were made. Everything that is being done for him with regard to his behaviors will not have much impact if he continues to not eat or drink adequately. TRANSINT:[id number] Voice Confirmation ID: [id number] DOCUMENT ID: [id number] GEREMIAS SHULTZ MD at 0849 CC: [id number] DICTATION DATE: 01/11/20 1411 ANALYTICS DEVELOPER: 01/11/20 2348 ADM IN [facility] [address] [place] [address]
[2020-01-12 11:03] LABS: BASOPHILS 0.7 % (0-2); EOSINOPHILS 0 % (0-7); HEMATOCRIT 33.5 % (42.0-54.0); HEMOGLOBIN 10.7 g/dL (13.5-17.5); IMMATURE GRANULOCYTES 12.7 % (0-5); LYMPHOCYTES 8.5 % (15-50); MCH 31.7 pg (26.0-34.0); MCHC 31.9 g/dL (31.0-37.0); MCV 99.1 fL (80.0-100.0); MEAN PLATELET VOLUME 10.3 fL (7.4-10.4); NEUTROPHILS 68.1 % (40-80); PLATELET COUNT 196 10x3/uL (130-400); RBC 3.38 10x6/uL (4.20-6.10); RDW 15.9 % (11.5-14.5); WBC 7.1 10x3/uL (4.8-10.8)
[2020-01-12 11:22] LABS: ALBUMIN 2.5 g/dL (3.4-5.0); ANION GAP 11.1 mmol/L (8-16); BILIRUBIN - TOTAL 0.9 mg/dL (0.2-1.3); CALCIUM 8.1 mg/dL (8.5-10.1); CARBON DIOXIDE 29.9 mmol/L (21.0-32.0); CREATININE - SERUM 1.4 mg/dL (0.6-1.3); PROTEIN - SERUM 5.4 g/dL (6.4-8.2)
[2020-01-12 12:05] LABS: ERYTHROCYTE SEDIMENTATION RATE 49 mm/hr (0-20)
--- NOTE | 2020-01-12 13:14 | NUR ---
The patient is sleeping a lot, he is angry because he is here. He is arvizu and tries to manipulate. He has multiple open areas to his coccyx and buttocks. He is used to having his way and he gets upset if staff do not attend to him right away. Provide prescribed meds. The patient is compliant with meds. He continues to not eat well, and his lungs are congested. Jasmine Boothe APN ordered a chest xray. Continue POC.
--- NOTE | 2020-01-12 14:20 | NUR ---
The patient c/o burning in his penis, he took his water and poured it on his penis, staff had to take the water. He was given his probiotic in applesauce, he put it in his mouth and then he spit it out as soon as this nurse walked away and he put the applesauce on his penis. Notified Dr. Avitia and he d/c'd the Levaquin and ordered Invanz IM. See MAR. The patient continues to yell and request water, staff providing him sips of water, and juices. He is confused, but staff have tried to explain to him that he needs to drink fluid to get rid of the bacteria. He needs redirection.
[2020-01-12 19:57] VITALS: BP 74/39
--- NOTE | 2020-01-13 00:07 | NUR ---
B.) PT IS ALERT AND ORIENTED TO SELF AND HE IS AWARE THAT HE IS IN A HOSPITAL. HE HAS A BRIGHTER AFFECT AND IS INTERACTIVE WITH JOKES WITH STAFF. HE INFORMED ME THAT THE REASON HE HAS BEEN REFUSING FLUIDS FREQUENTLY IS THAT HE PREFERS NO ICE IN HIS WATER. INFORMED HIM THAT I WOULD RELAY THE MESSAGE TO OTHER CARE GIVERS. I.) PROVIDED PM MEDICATIONS PRESCRIBED. PRN TYLENOL FOR BACK PAIN. REAPPLIED A NEW MEPILEX TO COCCYX AND REDIRECT OFTEN. R.) COMPLIANT WITH ALL MEDICATIONS. TOLERATED DRESSING WELL AND EASY TO REDIRECT AT TIMES. P.) WILL CONTINUE TO MONITOR.
--- NOTE | 2020-01-13 02:52 | NUR ---
PT HAS BEEN REPOSITIONED Q2H. TOLERATED WELL AND IS COOPERATIVE WITH STAFF. WILL CONTINUE TO MONITOR.
--- NOTE | 2020-01-13 08:40 | NUR ---
The patient is assisted out of the bed with Ridge Henning T and nursing students. The patient is in a good mood at this time he knows his name, but not place or time. He continues to have rattles in his chest and he coughs, but nothing productive. He can feed himself, he chooses not to eat. He is encouraged to drink fluids and explain to him the reason he needs to drink fluids. BP 106/50. Provide prescribed meds. Will need to crush his meds in applesauce to ensure he takes them. Monitor him as he has spit the medication out. Monitor his mood and behavior, he tries to make demands and he can be attention seeking. Continue POC.
[2020-01-13 10:15] VITALS: BP 106/50
--- NOTE | 2020-01-13 11:59 | PN ---
PATIENT:HELENA MENDEZ MEDICAL RECORD: [id number] LOCATION:[facility] ADMISSION DATE: 01/08/20 PROGRESS NOTE DATE OF SERVICE: 01/12/2020 SUBJECTIVE: The patient's case was discussed with staff. He has no new complaint. OBJECTIVE: The patient is in good behavioral control. He has poor insight about his situation. He can be demanding. ASSESSMENT: Dementia. PLAN: The patient is not eating despite efforts from staff to get him to do so. His condition is grave both from medical and dementia psychiatric standpoint. If he does not improve, I am going to recommend hospice to the soon. TRANSINT:[id number] Voice Confirmation ID: [id number] DOCUMENT ID: [id number] GEREMIAS SHULTZ MD at 1159 CC: [id number] DICTATION DATE: 01/12/20 1443 ROOF PAINTER: 01/12/20 2217 ADM IN [place] [address] [place] [address]
--- NOTE | 2020-01-13 15:51 | NUR ---
The patient's spouse is here and she is asking how he is doing. Let her know he slept last night, but his bp is low, he is not eating and if he continues to not eat or drink it will be negative on his health. Let her know that she may need to start thinking about Hospice. She said "Well, I told him he needs to work on eating more and drinking more." She told him "I'd like to bring you home, but you have to get better." He is trying to manipulate her by saying "I'm not going to talk to you anymore until you fix my chair." The spouse called me over and she told me that and I told him he would need to change chairs completely as his chair is broken. He then tried to manipulate me and tell me how I needed to do. I told him I would not argue with him and walked away. He is now talking to his .
--- NOTE | 2020-01-13 16:05 | NUR ---
The patient is now manipulating his spouse and he is crying telling her "I am wet and I want to be changed." Asked Khadijah Luther RN to check on him and the spouse told Khadijah and so I asked the staff to assist him to get cleaned up and to change chairs. Ridge Henning and Jose D Lepe RN assisted the patient.
--- NOTE | 2020-01-13 16:35 | NUR ---
Offering the patient drinks he has declined most of the day, but since his is here I asked her if she will see if she can get him to drink. Asked him if he would like a crangrape juice and he said "Got any alcohol to put in it?" Told him "No, but he could pretend." He said "ok." His is offering him sips.
--- NOTE | 2020-01-13 17:07 | NUR ---
The patient's spouse just left, she is very distraught and she is crying as she leaves.
--- NOTE | 2020-01-13 17:51 | NUR ---
The patient is sundowning and he is becoming demanding and he is telling staff that they need to stop talking about working. He refused to eat, he is yelling. Ativan 0.5 mg po provided. Will monitor his mood and behavior.
--- NOTE | 2020-01-13 20:09 | NUR ---
RECEIVED IN DAYROOM. SITTING IN A RECLINER WITH PEERS AT HIS SIDE. COOPERATIVE WITH CARE AND ASSESSMENT AT THIS TIME. YELLS OUT AT TIMES. VERBALLY ABUSIVE AT TIMES. NO SIGNS OF AGGRESSION. REDIRECT AND REOREINT NEEDED. CONTINUES AMAYA SIT IN RECLINER TALKING TO SELF. CONTINUE PLAN OF CARE.
[2020-01-13 20:41] VITALS: BP 101/46
--- NOTE | 2020-01-13 22:16 | NUR ---
REFUSED ALL PM MEDS.
--- NOTE | 2020-01-14 09:00 | PN ---
PATIENT:HELENA MENDEZ MEDICAL RECORD: [id number] LOCATION:[facility] ADMISSION DATE: 01/08/20 PROGRESS NOTE DATE OF SERVICE: 01/13/2020 SUBJECTIVE: The patient's case was discussed with staff. He has no new complaint. OBJECTIVE: The patient denies that he would seek to harm himself or others. He is sleeping better, but still not eating adequately. ASSESSMENT: Dementia. PLAN: The patient's condition is grave. The behavior problems are not unmanageable and mostly consist of him being angry and demanding, but he continues not to eat or drink adequately and unless that can be reversed, obviously hospice is going to be the next step. TRANSINT:[id number] Voice Confirmation ID: [id number] DOCUMENT ID: [id number] GEREMIAS SHULTZ MD at 0900 CC: [id number] DICTATION DATE: 01/13/20 1316 TOWEL FOLDER: 01/13/20 2140 ADM IN [place] [id number] [place] [id number]
[2020-01-14 09:47] VITALS: BP 111/67
--- NOTE | 2020-01-14 11:16 | NUR ---
Nutrition Follow-up: Chart reviewed. Diet was changed to Regular on 01/10/20 by MD to encourage PO intake. Patient seen by SHEAR GRINDER OPERATOR on 01/10/20, no s/s of aspiration on regular solids and thin liquids. Diet: Regular + Glucerna TID PO intake: <5% average x all meals Last BM: 01/09/20. Wt: 216# (01/13/20); Admit Wt: 217# (01/09/20) Meds noted: K-dur, prednisone, senokot, megace, vit D, SSI Labs noted (01/12/20): K 3(L), Alb 2.5(L), POC Glu 126(H)- 01/14/20 Skin: stage III PU to buttocks Recommend continue current diet and oral nutrition supplement. Encourage PO intake at meal times. MD may consider adding Megace ES appetite stimulus. If patient remains to be able to meet estimated energy needs via adequate PO intake will need nutrition support. If EN needed recommend: Glucerna 1.5 x 6-7 cans per day bolus feeding. RD following.
--- NOTE | 2020-01-14 17:49 | NUR ---
PT RESTING IN RECLINING CHAIR. ASSESSMENT COMPLETED. PT IS VERY DEMANDING WITH STAFF, SEXUALLY INAPPROPRIATE, RUDE, AND DISRESCPECTFUL. PRESCRIBED MEDS PROVIDED ORDERED. MED COMPLIANT. REDIRECT AND REORIENT NEEDED. FALL PRECAUTIONS IN PLACE. WILL CPOC.
[2020-01-14 18:27] LABS: ANION GAP 10.7 mmol/L (8-16); CALCIUM 8.5 mg/dL (8.5-10.1); CARBON DIOXIDE 30.2 mmol/L (21.0-32.0); CREATININE - SERUM 1.1 mg/dL (0.6-1.3); POTASSIUM - SERUM 3.9 mmol/L (3.5-5.1)
[2020-01-14 18:47] LABS: HEMATOCRIT 34.7 % (42.0-54.0); HEMOGLOBIN 11.2 g/dL (13.5-17.5); MCH 32.2 pg (26.0-34.0); MCHC 32.3 g/dL (31.0-37.0); MCV 99.7 fL (80.0-100.0); MEAN PLATELET VOLUME 11.2 fL (7.4-10.4); PLATELET COUNT 199 10x3/uL (130-400); RBC 3.48 10x6/uL (4.20-6.10); RDW 15.8 % (11.5-14.5)
--- NOTE | 2020-01-14 19:13 | NUR ---
RECEIVED IN DAYROOM. SITTING IN A CHAIR WITH PEERS AT HIS SIDE. CONFUSED. SEXUALLY INAPPROPRIATE, EXPOSING HIMSELF TO STAFF AND PEERS. CALM AND COOPERATIVE WITH CARE AND ASSESSMENT AT THIS TIME. NO SIGNS OF AGGRESSION. REDIRECT AND REORIENT NEEDED. CONTINUES TO SIT IN RECLING CHAIR. CONTINUE PLAN OF CARE.
[2020-01-14 19:33] LABS: EOSINOPHILS 10 % (0-7); LYMPHOCYTES 13 % (15-50); MONOCYTES 6 % (2-11); NEUTROPHILS 71 % (40-80); PLATELET ESTIMATE NORMAL
[2020-01-14 20:02] VITALS: BP 125/72
[2020-01-15 08:30] VITALS: BP 116/53
--- NOTE | 2020-01-15 11:11 | PN ---
PATIENT:HELENA MENDEZ MEDICAL RECORD: [id number] LOCATION:[facility] ADMISSION DATE: 01/08/20 PROGRESS NOTE DATE OF SERVICE: 01/14/2020 SUBJECTIVE: The patient's case was discussed with staff. He has no new complaint. OBJECTIVE: The patient has been disorganized and agitated. He has been verbally abusive and demanding. Unfortunately, he is also not eating. ASSESSMENT: Dementia. PLAN: The patient's condition is grave. I am going to check another set of baseline labs. I have encouraged him to eat. He gets angry and says he is eating as much as he can. He has been very sexually inappropriate, masturbating in front of the staff and making vulgar remarks to them. I am going to give him scheduled dose of Klonopin and will continue the other medications that he is receiving. TRANSINT:[id number] Voice Confirmation ID: [id number] DOCUMENT ID: [id number] GEREMIAS SHULTZ MD at 1111 CC: [id number] DICTATION DATE: 01/14/20 1612 RADIATOR REPAIRER: 01/15/20 0311 ADM IN [place] [address] [place] [address]
--- NOTE | 2020-01-15 13:15 | NUR ---
PT IS AWAKE AND ALERT TO PERSON ONLY. CALM AND COOPERATIVE WITH ASSESSMENT. PT IS VERY DEMANDING WITH STAFF AT TIMES. PRESCRIBED MEDS PROVIDED ORDERED. MED COMPLAINT. PT CAN BECOME AGGRESSIVE WITH STAFF VERY EASILY. HARD TO REDIRECT AT TIMES. REDIRECT AND REORIENT NEEDED. PT NOT EATING OR DRINKING MUCH THIS SHIFT AT THIS TIME. PT ENCOURAGED TO EAT AND DRINK. FALL PRECAUTIONS IN PLACE. WILL CPOC.
--- NOTE | 2020-01-15 19:56 | NUR ---
RECEIVED IN DAYROOM. SITTING IN A CHAIR WITH PEERS AT HIS SIDE. CALM AND COOPERATIVE WITH CARE AND ASSESSMENT. NO SIGNS OF AGGRESSION AT THIS TIME. REDIRECT AND REOREITN NEEDED. CONTINUES TO REST QUIETLY IN DAYROOM. CONTINUE PLAN OF CARE.
[2020-01-15 20:20] VITALS: BP 101/50
--- NOTE | 2020-01-16 08:56 | PN ---
PATIENT:HELENA MENDEZ MEDICAL RECORD: [id number] LOCATION:[facility] ADMISSION DATE: 01/08/20 PROGRESS NOTE DATE OF SERVICE: 01/15/2020 SUBJECTIVE: The patient's case was discussed with staff. He has no new complaint. OBJECTIVE: The patient denies intent to harm himself or others. He generally tolerates his medicines well. ASSESSMENT: Dementia. PLAN: The patient is much calmer today, although when awake, he is still demanding. His labs from yesterday indicate his BUN is trending upward, which is consistent with him not taking adequate food or drink. He will be monitored for clinical changes. If he does not begin eating or drinking better that obviously indicates that he needs to go to hospice for comfort care. TRANSINT:[id number] Voice Confirmation ID: [id number] DOCUMENT ID: [id number] GEREMIAS SHULTZ MD at 0856 CC: [id number] DICTATION DATE: 01/15/20 1516 BOX STAMPER: 01/15/20 2212 ADM IN [place] [address] [place] [address]
--- NOTE | 2020-01-16 10:11 | NUR ---
PT IS AWAKE AND ALERT TO PERSON ONLY. ASSESSMENT COMPLETED. PT YELLS OUT AT STAFF AND PEERS. PT IS CUSSING, YELLING, AND BEING RUDE TO STAFF AT THIS TIME. PT HARD TO REDIRECT AT TIMES. REDIRECT AND REORIENT NEEDED. PT REFUSES TO EAT OR DRINK. PT ENCOURAGED AND EXPLAINED THE IMPORTANCE OF EATING AND DRINKING. FALL PRECAUTIONS IN PLACE. WILL CPOC.
--- NOTE | 2020-01-16 10:49 | NUR ---
Nutrition Follow-up: Chart reviewed. Appetite poor and has to be encouraged to eat at meal times per MD notes. Diet was changed from Diabetic to Regular to hopefully help with appetite/PO intake on 01/10/20. Diet: Regular + Glucerna TID PO intake: <5% average x all meals Last BM: 01/09/20. Wt: 216# (01/13/20); Admit Wt: 217# (01/09/20) Meds noted: senokot, k-dur, prednisone, megace, SSI. Labs noted: POC Glu 253(H) Skin: PU x 2 to buttocks and L heel Patient continues with poor PO intake and inadequate energy intake. Recommend MD to consider PEG placement for meet nutrition needs long-term. Recommend: Glucerna 1.5 @ 60mL/hr. Or bolus regimen of Glucerna 1.5 x 6-[address] following.
[2020-01-16 13:17] VITALS: BP 113/71
[2020-01-16 16:45] LABS: HEMATOCRIT 34.2 % (42.0-54.0); HEMOGLOBIN 11.1 g/dL (13.5-17.5); LYMPHOCYTES 4.4 % (15-50); MCHC 32.5 g/dL (31.0-37.0); MCV 98.6 fL (80.0-100.0); MEAN PLATELET VOLUME 10.6 fL (7.4-10.4); NEUTROPHILS 83.3 % (40-80); PLATELET COUNT 164 10x3/uL (130-400); RBC 3.47 10x6/uL (4.20-6.10); RDW 15.5 % (11.5-14.5); WBC 7.1 10x3/uL (4.8-10.8)
[2020-01-16 16:54] LABS: ANION GAP 11.8 mmol/L (8-16); CALCIUM 8.1 mg/dL (8.5-10.1); CARBON DIOXIDE 27.9 mmol/L (21.0-32.0); CREATININE - SERUM 1.1 mg/dL (0.6-1.3); POTASSIUM - SERUM 3.7 mmol/L (3.5-5.1)
[2020-01-16 20:19] VITALS: BP 99/58
--- NOTE | 2020-01-16 23:00 | NUR ---
B.) PT IS ALERT AND ORIENTED TO SELF ONLY. HE IS RECEIVED IN THE DAYROOM IN A GERICHAIR. HE IS CALM AND COOPERATIVE WITH STAFF. NO AGGITATION AT THIS TIME. I.) PROVIDED PM MEDICATIONS PRESCRIBED. REDIRECT OFTEN. R.) COMPLIANT WITH ALL MEDICATIONS. EASY TO REDIRECT AT TIMES. P.) WILL CONTINUE TO MONITOR.
--- NOTE | 2020-01-17 02:33 | NUR ---
PT HAS PRODUCTIVE COUGH BUT REFUSING TO SPIT IT UP. O2 SAT 93. CALLED [facility] AND THEY ADMINISTERED BREATHING TX. O2 IS 94% ON 2L VIA NC. HOB 45 DEGREES. ENCOURAGED TO DEEP BREATH, COUGH AND SPIT. WILL CONTINUE TO MONITOR.
[2020-01-17 09:39] VITALS: BP 109/74
--- NOTE | 2020-01-17 09:51 | NUR ---
PT REFUSE TO EAT BREAKFAST. JULY Day RN ATTEMPTED TO ASSIST PT WITH GLUCERNA AND PT REFUSED SPITTING THE STRAW OUT OF PT MOUTH. STAFF CONTS TO ENCOURAGE PT TO EAT. PT REFUSED MEDICATIONS THIS SHIFT. WILL CONT TO MONITOR AND ENCOURAGE PT.
--- NOTE | 2020-01-17 10:18 | PN ---
PATIENT:HELENA MENDEZ MEDICAL RECORD: [id number] LOCATION:[facility] ADMISSION DATE: 01/08/20 PROGRESS NOTE DATE OF SERVICE: 01/16/2020 SUBJECTIVE: The patient's case was discussed with staff. He has no new complaint. OBJECTIVE: The patient is still not eating or drinking. Baseline labs will be drawn. He is looking weaker and his condition is grave. ASSESSMENT: Dementia. PLAN: As above. The patient is not responding to any kind of treatment and continues to decline. TRANSINT:[id number] Voice Confirmation ID: [id number] DOCUMENT ID: [id number] GEREMIAS SHULTZ MD at 1018 CC: [id number] DICTATION DATE: 01/16/20 1556 POULTRY SCIENTIST: 01/16/202023 ADM IN [place] [id number] [place] [address]
--- NOTE | 2020-01-17 13:00 | NUR ---
PT REFUSED TO EAT MORE THAN A COUPLE OF BITES AT LUNCH TIME. WILL CONT TO ENCOURAGE PT TO EAT.
--- NOTE | 2020-01-17 17:10 | NUR ---
Estee PADILLA, PATROL SERGEANT AND NURSE SPOKE WITH PTS IN REGARDS TO HOSPICE AND CODE STATUS. CHANGED CODE STATUS TO DNR.ORDER IN THE COMPUTER.
[2020-01-17 20:00] VITALS: BP 168/98
--- NOTE | 2020-01-17 21:48 | NUR ---
RECEIVED PATIENT IN HIS BED, HE IS CONFUSED, NO AGITATION NOTED, MEDS CRUSHED AND GIVEN IN PUDDING, HE IS COMPLIMENTING STAFF AT THIS TIME, WRAPS TO LEGS INTACT, OXYGEN IN PLACE AND IN USE, RESP. CAME TO ADMINISTER [facility]. TREATMENT. HE IS A TOTAL CARE PATIENT. WILL FOLLOW POC
--- NOTE | 2020-01-18 11:43 | NUR ---
The patient is lethargic. He takes off his oxygen at times. Offered him sips of orange juice. He did not want his medication and he did not want to eat. Trying to offer him sips of water every two hours. Turning every two hours, but the patient puts himself on his back. HOB elevated. Hospice is supposed to come and assess him if appropriate to admit. Continue POC.
--- NOTE | 2020-01-18 14:03 | NUR ---
HOSPICE CAME TO EVAL PT AT THIS TIME. PT CONTS TO REMOVE O2 FROM NOSE AND IS VERY LEGATRIC WELL. AWAITING RESPONSE.
[2020-01-18 16:23] LABS: BASOPHILS 0.8 % (0-2); EOSINOPHILS 0.3 % (0-7); HEMATOCRIT 38.1 % (42.0-54.0); HEMOGLOBIN 11.8 g/dL (13.5-17.5); IMMATURE GRANULOCYTES 8.5 % (0-5); LYMPHOCYTES 9.3 % (15-50); MCH 31.8 pg (26.0-34.0); MEAN PLATELET VOLUME 11.1 fL (7.4-10.4); MONOCYTES 8.7 % (2-11); NEUTROPHILS 72.4 % (40-80); PLATELET COUNT 141 10x3/uL (130-400); RBC 3.71 10x6/uL (4.20-6.10); WBC 7.3 10x3/uL (4.8-10.8)
[2020-01-18 16:43] LABS: MCV 102.7 fL (80.0-100.0)
[2020-01-18 16:51] LABS: ALBUMIN 2.5 g/dL (3.4-5.0); ANION GAP 17.2 mmol/L (8-16); BILIRUBIN - TOTAL 0.86 mg/dL (0.2-1.3); CALCIUM 8.2 mg/dL (8.5-10.1); CARBON DIOXIDE 25.1 mmol/L (21.0-32.0); CREATININE - SERUM 1.1 mg/dL (0.6-1.3); POTASSIUM - SERUM 3.3 mmol/L (3.5-5.1); PROTEIN - SERUM 5.4 g/dL (6.4-8.2)
[2020-01-18 20:00] VITALS: BP 91/54
--- NOTE | 2020-01-18 22:02 | NUR ---
RECEIVED PATIENT IN HIS ROOM, HE IS ON 3 LITERS OF OXYGEN, HE IS BEING TURNED EVERY TWO HOURS, HE DOES NOT MAKE HIS NEEDS KNOWN, HE IS A TOTAL CARE PATIENT, CONFUSED, WEAK. WILL FOLLOW POC
[2020-01-19 09:18] VITALS: BP 141/60
--- NOTE | 2020-01-19 12:00 | NUR ---
RECEIVED IN PATIENT ROOM. PATIENT IS LAYING IN BED WITH EYES CLOSED. MOANING OUT IN PAIN. REPEATEDLY REMOVES HIS OXYGEN. UNABLE TO PERFORM OR ASSIST WITH ADL'S AND IS TOTATL CARE. PATIENT IS NOT EATING OR WANTING TO DRINK. UNABLE TO MAKE NEEDS KNOWN. TURN Q2H. OFFERING SIPS OF WATER Q2H. ENCOURAGE TO EAT AND DRINK. CONTINUE PLAN OF CARE.
--- NOTE | 2020-01-19 15:59 | NUR ---
NURSE CHANGED BANDAGES TO PT COCCYX, BILATERAL LEGS AND BILATERAL ARMS. MEPRILXS IN PLACE WITH DATE AND INTIAL.
[2020-01-19 21:28] VITALS: BP 105/69
--- NOTE | 2020-01-19 21:29 | NUR ---
RECEIVED PATIENT IN HIS ROOM LYING IN BED IN HIGH VASQUEZ'S POSITION, HE HAS DIMINISHED BREATH SOUNDS, BREATHING IS SHALLOW, HE SHOOK HIS HEAD "NO" TO REFUSE HIS MEDS. TOTAL CARE PATIENT. HE SHOWS OUTWARDLY SIGNS OF PAIN DURING CARE SUCH FACIAL GRIMACING AND MOANING. WILL CONTINUE TO MONITOR
--- NOTE | 2020-01-20 05:40 | NUR ---
CALLED [facility] TO COME AND SET UP SUCTION FOR PATIENT. PATIENT WAS SUCTIONED, HE "IMPROVED" A LITTLE, OUTSIDE PLANT TECHNICIAN AWARE. HE ASKED FOR A COKE TO DRINK AFTER SUCTIONING. HE IS IN HIGH VASQUEZ'S POSITION. NO ACUTE RESP. DISTRESS. HIS EXTREMTIES ARE COOL TO TOUCH, UNABLE TO OBTAIN A PULSE OX READING. PATIENT IS BEING TURNED AND REPOSITIONED EVERY 2 HOURS. HE DOES GRIMACE WHEN HE IS TURNED AND REPOSITIONED. CURRENTLY WAITING ON HOSPICE TO ACCEPT AFTER EVALUATION. HE IS A DNR. WILL CONTINUE TO MONITOR
[2020-01-20 05:55] VITALS: BP 93/49
--- NOTE | 2020-01-20 06:20 | NUR ---
CALLED [facility] TO INQUIRE ABOUT PATIENT'S ACCEPTANCE OR DECLINE. SPOKE WITH SQL SERVER CONSULTANT HOSPICE NURSE, FORTINO, AND GAVE A FULL REPORT REGARDING PATIENT'S STATUS AND HIS DECLINE SINCE 01-18-20 SUCH COOL EXTREMETIES, DENYING HIS MEDS ON THIS SHIFT, THE MINIMUM AMOUNT OF FOOD AND LIQUID. PAIN DURING INCONTINENT CARE OR REPOSTIONING. THE INTITIATION OF HIM HAVING TO BE SUCTIONED. DECLINE IN COMMUNICATION. ACCORDING TO JAJA BASSETT APN NOTES SHE WAS ALSO WAITING FOR A RESPONSE
--- NOTE | 2020-01-20 06:36 | NUR ---
RECEIVED A CALL FROM [facility] THE PATIENT HAS A ROOM AT [facility] ROOM 546. WILL PASS THIS ON TO DAY SHIFT REPORT.
--- NOTE | 2020-01-20 06:39 | NUR ---
DR. CLAROS NOTIFIED. INFORMED THAT HE HAS BEEN ACCEPTED FOR INPATIENT HOSPICE.
--- NOTE | 2020-01-20 06:43 | NUR ---
, JA MENDEZ, CALLED AND NOTIFIED OF HIS DECLINE AND OF HIS ACCEPTANCE A PATIENT TO [facility] INPATIENT TO ROOM 546
--- NOTE | 2020-01-20 10:00 | NUR ---
PATIENT DISCHARGED TO [facility]. TRANSPORTED VIA EMS. REPORT CALLED TO Beth MISHRA RN. PAPERWORK FAXED AND HARD COPY SENT WITH PATIENT. PERSONAL BELONGINGS SENT WITH PATIENT.
--- NOTE | 2020-01-21 09:13 | PN ---
PATIENT:HELENA MENDEZ MEDICAL RECORD: [id number] LOCATION:[facility] ADMISSION DATE: 01/08/20 PROGRESS NOTE DATE OF SERVICE: 01/17/2020 SUBJECTIVE: The patient's case was discussed with staff. He has no new complaint. OBJECTIVE: The patient is not changing significantly. Currently, he is holding his own metabolically and his lab is better than I would have anticipated, but it will not stay this way given how little oral intake he has. He did pass the swallowing eval, so he is capable of processing food, but he simply is very advanced in his dementia and is not taking adequate nutrition. ASSESSMENT: Dementia. PLAN: Current medicines have been reviewed and will be maintained. The patient's condition is grave in my estimation. NTS:[id number] Voice Confirmation ID: [id number] DOCUMENT ID: [id number] GEREMIAS SHULTZ MD at 0913 CC: [id number] DICTATION DATE: 01/17/20 164 PUBLIC ADDRESS SYSTEMS MECHANIC: 01/17/20 1844 DIS IN 01/20/20 [facility] [address] [place] [address]
--- NOTE | 2020-01-22 10:10 | DS ---
PATIENT:HELENA MENDEZ :46 MEDICAL RECORD: [id number] DISCHARGE SUMMARY ADMISSION DATE: 01/08/20 DISCHARGE DATE: 01/20/20 DATE OF DISCHARGE: 01/20/2020 IDENTIFYING DATA: Mr. Christian is a 69-year-old who was admitted to the hospital on a voluntary basis secondary to agitation, confusion and metabolic encephalopathy. HISTORY OF PRESENT ILLNESS: The patient was recently transferred from the medical floor where he had been admitted because of agitation, confusion and metabolic encephalopathy. He has been stabilized and was transferred here for ongoing evaluation of his cognitive impairment. He was significantly impaired cognitively and has poor short-term memory. HOSPITAL COURSE: The patient was admitted to the hospital and fully evaluated from both medical, psychological, and social standpoint; however, the patient did not change significantly. However, he did stop his oral intake and he did pass a swallowing evaluation. He was capable of processing food, but he simply is very advanced and has dementia and is not taking adequate nutrition. The patient metabolically did continue to decline and the patient was accepted into hospice and then the patient continued to decline and was transferred to [facility] for inpatient hospice care. 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 AXIS II: None. AXIS III: Diabetes, congestive heart failure and osteoarthritis. AXIS IV: Moderate stressors. AXIS V: Global assessment functioning. At the time of discharge, the patient was not eating, would yell out intermittently and was incomprehensible and was transferred to inpatient hospice for palliative care. Dictated By: Dina Sam APN I have interviewed/examined the above patient and agree with these documented findings. TRANSINT:[id number] Voice Confirmation ID: [id number] DOCUMENT ID: [id number] GEREMIAS SHULTZ MD at 1010 CC: [id number] DICTATION DATE: 01/21/20 1006 WHEAT FARMER: 01/21/20 2307 DIS IN 01/20/20 [place] [address] [place] [address]
== END 2020-01-20 09:45 | disposition home health service (06) | DRG 56 ==
LOC: D.PSYCH 18:53
PROVIDERS: Family Medicine; ADMIT Psychiatry & Neurology Psychiatry; ATTEND Psychiatry & Neurology Psychiatry
DX: G30.9 Alzheimer's disease, unspecified (principal); L89.303 Pressure ulcer of unspecified buttock, stage 3; F02.81 Dementia in other diseases classified elsewhere, unspecified severity, with behavioral disturbance; I48.20 Chronic atrial fibrillation, unspecified; I50.20 Unspecified systolic (congestive) heart failure; E11.9 Type 2 diabetes mellitus without complications; M19.90 Unspecified osteoarthritis, unspecified site; I11.0 Hypertensive heart disease with heart failure; E78.5 Hyperlipidemia, unspecified; K21.9 Gastro-esophageal reflux disease without esophagitis; R26.9 Unspecified abnormalities of gait and mobility; N40.0 Benign prostatic hyperplasia without lower urinary tract symptoms; E55.9 Vitamin D deficiency, unspecified; M35.3 Polymyalgia rheumatica; R63.0 Anorexia; K59.00 Constipation, unspecified; R05 Cough; E87.6 Hypokalemia; E11.40 Type 2 diabetes mellitus with diabetic neuropathy, unspecified